=== PATIENT | female | born 1990 | race Caucasian/White ===

== ENCOUNTER 2020-12-05 | Outpatient (REF) | payer BC, SELFPAY ==
[2020-12-11 21:22] LABS: HPV mRNA E6/E7 rflx Not Detected (Not Detected)
== END 2020-12-05 00:01 | disposition home or self-care (01) ==
LOC: HO.LNP
PROVIDERS: Visit Provider Internal Medicine
DX: Z12.4 Encounter for screening for malignant neoplasm of cervix (principal); Z11.51 Encounter for screening for human papillomavirus (HPV)
CPT/HCPCS: 87624; 88142

== ENCOUNTER 2021-01-07 15:17 | Outpatient (REF) | payer BC, SELFPAY ==
--- NOTE | ~2021-01-07 | XR_ITS ---
EXAMINATION: XR SACRUM AND COCCYX CLINICAL INFORMATION: Contusion of lower back and pelvis COMPARISON: None TECHNIQUE: 3 views of sacrum and coccyx were obtained. FINDINGS: There is normal symmetry of bilateral SI joints. No visible fracture is a bony abnormality involving the sacrum or the coccygeal bones. The presacral and postsacral soft tissues are normal. XR/XR sacrum coccyx min 2V IMPRESSION: Unremarkable sacrum and/or coccyx
== END 2021-01-07 15:18 | disposition home or self-care (01) ==
LOC: HO.HMGCX 15:17
PROVIDERS: PCP Internal Medicine; Visit Provider Nurse Practitioner Family
DX: S30.0XXA Contusion of lower back and pelvis, initial encounter (principal); X58.XXXA Exposure to other specified factors, initial encounter; Y93.9 Activity, unspecified; Y92.9 Unspecified place or not applicable; Y99.9 Unspecified external cause status
CPT/HCPCS: 72220

== ENCOUNTER → 2021-02-07 14:06 | Outpatient (REF) | payer BC, SELFPAY ==
--- NOTE | 2021-02-07 14:40 | ECG_ITS ---
Hook-up date: 2021-02-07 14:19:00 Duration: 47:59:00 Test Indications: PALPITATIONS Medications: [id number] QRS complexes * Ventricular ectopics which represent % of total QRS comp. * Supraventricular ectopics which represent % of total QRS comp. * Paced QRS complexs which represent % of total QRS comp. VENTRICULAR ECTOPY * Isolated * Bigeminal Cycles * Couplets * Runs * Beats in Runs * Beats LONGEST at * BPM at :: -- * Beats FASTEST at * BPM at :: -- SUPRAVENTRICULAR ECTOPY * Isolated * Couplets * Runs * Beats in Runs * Beats LONGEST at * BPM at :: -- * Beats FASTEST at * BPM at :: -- HEART RATES 53 MIN at 05:58:22 2021-02-08 83 AVG 147 MAX at 18:36:26 2021-02-07 LONGEST RR 1.4240 secs at 03:19:58 2021-02-08 S-T LEVELS Channel 1 - 128 mm at 14:19:00 2021-02-07 - 128 mm at 14:19:00 2021-02-07 Channel 2 - 128 mm at 14:19:00 2021-02-07 - 128 mm at 14:19:00 2021-02-07 Channel 3 - 128 mm at 03:33:81 -- - 128 mm at 03:33:81 Basic rhythm Normal sinus rhythm No long pause or profound bradycardia No dangerous dysrhythm periods Referred By: Lenore Francis Overread By: ERICA RODRÍGUEZ MD
== END ==
LOC: HO.CARD 14:06
PROVIDERS: PCP Internal Medicine; Visit Provider Internal Medicine
DX: R00.2 Palpitations (principal)
CPT/HCPCS: 93225; 93226

== ENCOUNTER 2021-02-18 08:07 | Outpatient (REF) | payer BC, SELFPAY ==
[2021-02-18 11:24] LABS: MANUAL DIFF FLAG NO
[2021-02-18 11:27] LABS: Basophils Percent Auto 0.4 % (0-2); Eosinophils Absolute Auto 0.2 X10*3/uL (0.0-0.4); Eosinophils Percent Auto 2.9 % (0-4); Hematocrit 42.1 % (37-47); Hemoglobin 14.4 g/dl (12.0-16.0); Imm Gran Abs Auto 0.02 X10*3/uL (0.00-0.03); Imm Gran Pct Auto 0.3 % (0.0-0.4); Lymphocytes Absolute Auto 1.5 X10*3/uL (1.2-4.9); Lymphocytes Percent Auto 22.5 % (20-40); Mean Corpuscular HGB Conc 34.2 g/dl (31.0-35.0); Mean Corpuscular Hemoglobin 31.9 pg (27.0-33.0); Mean Corpuscular Volume 93.1 fL (80-98); Mean Platelet Volume 9.4 fL (9.4-12.3); Monocytes Absolute Auto 0.5 X10*3/uL (0.1-1.2); Monocytes Percent Auto 7.7 % (2-11); Neutrophils Absolute Auto 4.5 X10*3/uL (2.0-8.3); Neutrophils Percent Auto 66.2 % (45-73); Platelet Count 197 X10*3/uL (160-400); Red Blood Count 4.52 X10*6/uL (4.20-5.50); Red Cell Distribution Width 11.6 % (11.0-16.0); White Blood Count 6.8 X10*3/uL (4.8-10.8)
[2021-02-18 12:03] LABS: Aspartate Amino Transferase 22 U/L (5-31); Cholesterol 171 mg/dL; HDL Cholesterol 54 mg/dL; LDL Cholesterol Calculated 104 mg/dl; Triglycerides 67 mg/dL
[2021-02-18 12:04] LABS: TSH reflex Free T4 0.63 uIU/mL (0.32-4.0); Vitamin D 25-OH Total 18.8 ng/mL (>30)
[2021-02-19 07:54] LABS: HIV AB/AG Nonreactive (Nonreactive); HIV Num 1 0.04 S/CO (0.00-0.99); ~HepC Num1 0.08 S/CO (0.00-0.79); ~Hepatitis C Antibody Nonreactive (Nonreactive)
== END 2021-02-18 08:08 | disposition home or self-care (01) ==
LOC: HO.HMGCLDS 08:07
PROVIDERS: PCP Internal Medicine; Visit Provider Internal Medicine
DX: Z00.01 Encounter for general adult medical examination with abnormal findings (principal); R00.2 Palpitations; Z11.3 Encounter for screening for infections with a predominantly sexual mode of transmission
CPT/HCPCS: 36415; 80061; 82306; 84443; 84450; 85025; 86803; 87389

== ENCOUNTER 2022-01-06 08:55 | Outpatient (REF) | payer OTHER, SELFPAY ==
[2022-01-06 11:33] LABS: Appearance Urine CLEAR; Color Urine YELLOW; Glucose Urine UA NEG (NEG); Leukocyte Esterase Urine 1+ (NEG); Nitrite Urine NEG (NEG); Specific Gravity - Urine 1.025 (1.005-1.025); UACC Culture Trigger YES; Urine Blood 3+ (NEG); Urine Ketones NEG (NEG); Urine Protein NEG (NEG-TRACE)
[2022-01-06 11:35] LABS: MANUAL DIFF FLAG NO
[2022-01-06 11:47] LABS: Basophils Percent Auto 0.5 % (0-2); Eosinophils Absolute Auto 0.2 X10*3/uL (0.0-0.4); Hematocrit 43.5 % (37.0-47.0); Hemoglobin 14.1 g/dl (12.0-16.0); Imm Gran Abs Auto 0.02 X10*3/uL (0.00-0.03); Imm Gran Pct Auto 0.3 % (0.0-0.4); Lymphocytes Percent Auto 32.6 % (20-40); Mean Corpuscular HGB Conc 32.4 g/dl (31.0-35.0); Mean Corpuscular Hemoglobin 32.9 pg (27.0-33.0); Mean Corpuscular Volume 101.4 fL (80.0-98.0); Mean Platelet Volume 9.4 fL (9.4-12.3); Monocytes Absolute Auto 0.5 X10*3/uL (0.1-1.2); Monocytes Percent Auto 7.5 % (2-11); Neutrophils Absolute Auto 3.3 x10*3/uL (2.0-8.3); Neutrophils Percent Auto 55.1 % (45-73); Platelet Count 232 X10*3/uL (160-400); Red Blood Count 4.29 X10*6/uL (4.20-5.50); Red Cell Distribution Width 12.2 % (11.0-16.0)
[2022-01-06 11:56] LABS: Bacteria Urine TRACE /LPF; Squamous Epithelial Cell Urine 2+ /LPF
[2022-01-06 12:16] LABS: Alanine Aminotransferase 33 U/L (0-31); Anion Gap 11 (12-20); Aspartate Amino Transferase 27 U/L (5-31); Blood Urea Nitrogen 11 mg/dL (9-16); Calcium 9.3 mg/dL (8.4-10.2); Carbon Dioxide 28 mmol/L (22-29); Chloride 109 mmol/L (96-108); Cholesterol 215 mg/dL; Estimated Glomerular Filt Rate > 60; Glucose Fasting 87 mg/dL (60-99); HDL Cholesterol 42 mg/dL; LDL Cholesterol Calculated 141 mg/dl; Sodium 143 mmol/L (135-145); Triglycerides 164 mg/dL
[2022-01-06 12:17] LABS: Vitamin D 25-OH Total 35.9 ng/mL (>30)
== END 2022-01-06 08:56 | disposition home or self-care (01) ==
LOC: HO.HMGCLDS 08:55
PROVIDERS: Visit Provider Internal Medicine
DX: Z00.00 Encounter for general adult medical examination without abnormal findings (principal)
CPT/HCPCS: 36415; 80048; 80061; 81001; 82306; 84450; 84460; 85025; 87086

== ENCOUNTER 2022-04-06 12:02 | Outpatient (REF) | payer OTHER, SELFPAY ==
[2022-04-06 12:59] LABS: Influenza A PCR NEGATIVE (Negative); Influenza B PCR NEGATIVE (Negative); Resp Syncy Virus RNA Qual PCR NEGATIVE (Negative); SARS COV2 PCR INHOUSE NEGATIVE (Negative)
== END 2022-04-06 12:03 | disposition home or self-care (01) ==
LOC: HO.LNP 12:02
PROVIDERS: Visit Provider Emergency Medicine
DX: R68.89 Other general symptoms and signs (principal); Z20.822 Contact with and (suspected) exposure to COVID-19
CPT/HCPCS: 0241U

== ENCOUNTER 2023-04-14 08:56 | Outpatient (REF) | payer OTHER, SELFPAY | END 2023-04-14 08:57 | disposition home or self-care (01) | LOC: HO.HMGCLDS 08:56 | PROVIDERS: PCP Internal Medicine; Visit Provider Internal Medicine | DX: Z00.01 Encounter for general adult medical examination with abnormal findings (principal); E78.00 Pure hypercholesterolemia, unspecified; E66.3 Overweight; Z13.1 Encounter for screening for diabetes mellitus; Z13.220 Encounter for screening for lipoid disorders | CPT/HCPCS: 36415; 80061; 82947; 84450; 84460 ==

== ENCOUNTER 2023-06-29 13:50 | Outpatient (AMB) | payer OTHER, SELFPAY ==
--- NOTE | 2023-06-29 14:17 | MHC.PC.OV ---
Vital Signs 06/29/23 14:18 Height 5 ft 1 in Weight 143 lb BMI 27.0 BP 100/70 Blood Pressure Location Lt brachial Position Sitting Pulse 95 Pulse Source Pulse Oximeter Pulse Oximetry (%) 99 Oxygen Delivery Method Room Air Intake Visit Reasons: Rt foot sari. wart removal 07/06 Dr. Bar Intake Note: Pt is here today for a pre-op Rt foot plantar wart removal 07/06/23 Dr. Bar Allergies amoxicillin [AMOXICILLIN] Allergy (Unknown, Verified 06/29/23 14:28) UNKNOWN, unsure vancomycin Allergy (Mild, Uncoded 06/29/23 14:28) rash itchiness Medication List - Last Reconciled 06/29/23 by Lenore Francis MD multivitamin 1 tab PO DAILY Tobacco use date assessed: 06/29/23 Dental Screening Dental Screen Date: 06/29/23 Did you have a dental visit in the last 12 months?: Yes Did you have a dental problem in the last 6 months where you did not have access to dental care?: No Was dental information given to patient?: Patient has dentist HPI Rt foot sari. wart removal 07/06 Dr. Bar HPI Details 33-year-old lady here today for preoperative exam for laser surgery for removal plantar warts on right foot, scheduled for 07/06/2023, requested by Dr. Bar. Patient has hypercholesterolemia, controlled with diet and exercise,, has no complaints at present time. [facility] Medical History Hypercholesterolemia Plantar wart of right foot Wart Generalized anxiety disorder with panic attacks Seasonal allergies Chlamydia Ectopic Bruxism Surgical History History of surgery History of surgery History of eye surgery Family History Father ETOH abuse Diabetes mellitus Mother No problems noted. Sister No problems noted. Sister No problems noted. Maternal Grandfather No problems noted. Maternal Grandmother No problems noted. Paternal Grandfather No problems noted. Paternal Grandmother No problems noted. Other Mental health disorder Substance use disorder Social History Housing: Apartment Alcohol intake: current Alcohol intake frequency: holidays/special occasions only Patient Tobacco Use Status: Never used Tobacco e-Cigarette/Vaping Use: Never Used Current occupational status: employed Cognitive needs: No Hearing needs: No Vision needs: Yes Questionnaire PHQ-9 Over the last 2 weeks, how often have you been bothered by any of the following problems? Depression Screening Interpretation: Negative Source: Developed by Drs. Mehrdad Coon, Karlos Cristina and colleagues, with an educational luiza from [employer]. Thrive Questionnaire Date Thrive assessed: 04/14/23 CARLEEN-7 AMB Questionnaire CARLEEN-7 Date CARLEEN - 7 assessed: 04/14/23 Source: Developed by Drs. Mehrdad Coon, Karlos Cristina and colleagues, with an educational luiza from [employer]. Review of Systems Const Denies body aches, Denies fatigue, Denies fever(s), Denies headache(s) and Denies weakness Eyes Details: Positive myopia, [facility] clinic in [place] Denies change in vision ENT Denies dizziness, Denies headache(s), Denies nasal congestion, Denies nasal discharge and Denies sore throat Card Denies chest pain, Denies lightheadedness, Denies palpitations and Denies dyspnea Resp Denies chest congestion, Denies cough, Denies dyspnea and Denies wheezing GI Denies abdominal pain, Denies change in bowel habits and Denies heartburn Denies urinary frequency, Denies dysuria and Denies urinary urgency Musc Reports no additional complaints Skin/Breast Denies breast skin changes, Denies breast pain, Denies breast mass and Reports lesions (Plantar wart right foot) Neuro Denies dizziness, Denies headache(s) and Denies weakness Psych Denies anxiety, Denies depression, Denies irritability, Denies mood swings and Denies panic attacks Endo Denies fatigue, Denies polydipsia, Denies polyuria and Denies palpitations Bao/Lymph Denies easy bruising Aller/Immun Denies seasonal rhinorrhea and Denies wheezing Physical exam (Primary Care) Vital Signs: Last Vital Signs Pulse 95 06/29/23 14:18 BP 100/70 06/29/23 14:18 Pulse Ox 99 06/29/23 14:18 Oxygen Delivery Method Room Air 06/29/23 14:18 BMI result Body Mass Index 27.0 Tobacco/Smoking Status: Tobacco use Status Tobacco use date assessed 06/29/23 06/29/23 14:21 Patient Tobacco Use Status Never used Tobacco 06/29/23 14:21 e-Cigarette/Vaping Use Never Used 06/29/23 14:21 Depression Screening Interpretation: Negative Thrive Assessment: Date of Thrive Assessment Date Thrive assessed 04/14/23 06/29/23 14:21 Const General: no acute distress, alert and awake Orientation/consciousness: patient oriented x3 HENMT Ears: external ears normal, TM's normal bilaterally and EAC's normal Eyes General: appearance normal, both eyes and all related structures Neck Neck: Yes full ROM, Yes no lymphadenopathy, Yes no meningeal signs and Yes supple Resp Effort & Inspection: normal respiratory effort and able to speak in complete sentences Auscultation: clear to auscultation bilaterally Cardio Other: S1-S2 present regular rate and rhythm GI Other: + striae, Normal bowel sounds, soft, nontender, no mass palpated General: Yes no CVA tenderness Back/Spine/Pelvis Back: no CVA tenderness and No back tenderness Skin Other: Right plantar wart, nontender to palpation Neuro General: patient oriented x3, gait normal, tone normal, moves all extremities, Normal light touch and pain sensation, no meningeal signs, no focal motor deficits and CN's II-XI intact bilaterally Extrem General: Yes full ROM, Yes no joint enlargement, Yes no clubbing, cyanosis or edema, Yes no pedal edema, Yes no calf tenderness and Yes normal gait Assessment and Plan Assessment & Plan (1) Preoperative examination: Code(s): Z01.818 - Encounter for other preprocedural examination Plan: Pt is a 33 year old lady here for preoperative clearance for under laser surgery for plantar wart on right foot scheduled for 07/06/2023, requested by Dr. Bar She has history of hypercholesteremia, currently controlled and with diet and exercise . Physical exam was unremarkable . Patient with low cardiac risk index for proposed surgery (2) Plantar wart of right foot: Code(s): B07.0 - Plantar wart Plan: Scheduled for laser excision on 07/06/[address] Bar Coding Level of Care Code Est Pt Level 3 (07633) Diagnoses Preoperative examination Z01.818 Plantar wart of right foot B07.0
[2023-06-29 14:18] VITALS: BP 100/70; PULSE 95; O2SAT 99; BMI 27.0
== END 2023-06-29 14:55 | disposition home or self-care (01) ==
PROVIDERS: PCP Internal Medicine; Visit Provider Internal Medicine
DX: Z01.818 Encounter for other preprocedural examination (principal); B07.0 Plantar wart
CPT/HCPCS: 99213

== ENCOUNTER 2024-01-27 11:17 | Outpatient (AMB) | payer OTHER, SELFPAY ==
[2024-01-27 11:21] VITALS: BP 100/72; PULSE 69; O2SAT 100; BMI 27.2
--- NOTE | 2024-01-27 11:21 | MHC.PC.OV ---
Vital Signs 01/27/24 11:21 Height 5 ft 1 in Weight 144 lb BMI 27.2 BP 100/72 Blood Pressure Location Lt brachial Position Sitting Pulse 69 Pulse Source Pulse Oximeter Pulse Oximetry (%) 100 Oxygen Delivery Method Room Air Intake Visit Reasons: chest pain Intake Note: Pt is here today c/o sharp pain below Lt breast, aches more when taking a deep breath started yesterday: LMP 01/05/24 Allergies amoxicillin [AMOXICILLIN] Allergy (Unknown, Verified 01/27/24 11:52) UNKNOWN, unsure vancomycin Allergy (Mild, Uncoded 01/27/24 11:52) rash itchiness Medication List - Last Reconciled 01/27/24 by Lenore Francis MD multivitamin 1 tab PO DAILY Saccharomyces boulardii (Daily Probiotic (S. boulardii)) 250 mg PO BID Tobacco use date assessed: 01/27/24 Dental Screening Dental Screen Date: 01/27/24 Did you have a dental visit in the last 12 months?: Yes Did you have a dental problem in the last 6 months where you did not have access to dental care?: No Was dental information given to patient?: Patient has dentist HPI chest pain HPI Details 33-year-old lady here today complaining of intermittent episodes of sharp pain in left anterior chest, just below the nipple, comes and goes, worse with taking a deep breath or lying flat. Denies any accompanying palpitations, no shortness of breath, no lightheadedness, no nausea, vomiting or heartburn symptoms.. Did not take any medication for this complaint. No history of trauma or strenuous exertion. Patient states however that she does carry her daughter who weighs 20 lb usually with on her left side. [facility] Medical History Hypertriglyceridemia Plantar wart of right foot Generalized anxiety disorder with panic attacks Seasonal allergies Chlamydia Ectopic Bruxism Surgical History History of surgery History of surgery History of eye surgery Family History Father ETOH abuse Diabetes mellitus Mother No problems noted. Sister No problems noted. Sister No problems noted. Maternal Grandfather No problems noted. Maternal Grandmother No problems noted. Paternal Grandfather No problems noted. Paternal Grandmother No problems noted. Other Mental health disorder Substance use disorder Social History Housing: Apartment Alcohol intake: current Alcohol intake frequency: holidays/special occasions only Patient Tobacco Use Status: Never used Tobacco e-Cigarette/Vaping Use: Never Used Current occupational status: employed Cognitive needs: No Hearing needs: No Vision needs: Yes Female Reproductive History Menstrual Date of last menstrual period: 01/05/24 control method: none Questionnaire PHQ-9 Over the last 2 weeks, how often have you been bothered by any of the following problems? 1. Little interest or pleasure in doing things: not at all 2. Feeling down, depressed, or hopeless: not at all 3. Trouble falling or staying asleep, or sleeping too much: not at all 4. Feeling tired or having little energy: not at all 5. Poor appetite or overeating: not at all 6. Feeling bad about yourself - or that you are a failure or have let yourself or your family down: not at all 7. Trouble concentrating on things, such as reading the newspaper or watching television: not at all 8. Moving or speaking so slowly that other people could have noticed. Or the opposite - being so fidgety or restless that you have been moving around a lot more than usual: not at all 9. Thoughts that you would be better off or of hurting yourself in some way: not at all Total score: 0 Depression Screening Interpretation: Negative Depression Screening Done: Yes 59083 - PHQ-9 Billing: Yes Source: Developed by Drs. Mehrdad Coon, Katerina Jansen, Karlos Bolden and colleagues, with an educational luiza from [employer]. Thrive Questionnaire Date Thrive assessed: 01/27/24 I am a: Patient What is your living situation today?: I have a steady place to live Within the past 12 months, did the food you bought not last and you didn't have the money to get more?: Never true Within the past 12 months, did you worry whether your food would run out before you got money to buy more?: Never true Do you have trouble paying for medicines?: No Do you have trouble getting transportation to medical appointments?: No Do you have trouble paying your heating and electricity bill?: No Do you have trouble taking care of your child, family member or friend?: No Do you have trouble with day-to-day activities such as bathing, preparing meals, shopping, managing finances, etc.?: No Are you currently unemployed and looking for a job?: No Are you interested in more education?: No THRIVE Score: 0 AUDIT C Alcohol Use Questionnaire (AUDIT-C) 1. How often do you have a drink containing alcohol?: Monthly or less 2. How many drinks containing alcohol do you have on a typical day when you are drinking?: 1 or 2 3. How often do you have six or more drinks on one occasion?: Never Total Score: 1 CARLEEN-7 AMB Questionnaire CARLEEN-7 Date CARLEEN - 7 assessed: 01/27/24 Feeling nervous, anxious, or on edge: 0 = Not at all Not being able to stop or control worryin = Not at all Worrying too much about different things: 0 = Not at all Trouble relaxin = Not at all Being so restless that it is hard to sit still: 0 = Not at all Becoming easily annoyed or irritable: 0 = Not at all Feeling afraid as if something awful might happen: 0 = Not at all Total CARLEEN-7 score (0-4 normal; 5-9 mild; 10-14 moderate; 15-21 severe): 0 Source: Developed by Drs. Mehrdad Coon, Katerina Jansen, Karlos Bolden and colleagues, with an educational luiza from [employer]. CARLEEN-7 Assessment Billing CARLEEN-7 Assessment Tool: CARLEEN-7 Assessment 57351 Review of Systems Const Denies fatigue, Denies fever(s), Denies headache(s) and Denies weakness ENT Denies dizziness, Denies headache(s), Denies nasal congestion and Denies nasal discharge Card Denies lightheadedness, Denies palpitations and Denies dyspnea Resp Denies chest congestion, Denies cough, Denies dyspnea and Denies wheezing GI Denies abdominal pain, Denies change in bowel habits and Denies heartburn Denies urinary frequency, Denies dysuria and Denies urinary urgency Musc Reports no additional complaints Skin/Breast Denies breast skin changes, Denies breast pain and Denies breast mass Neuro Denies dizziness, Denies headache(s) and Denies weakness Psych Denies anxiety, Denies depression, Denies irritability and Denies mood swings Endo Denies fatigue, Denies polydipsia, Denies polyuria and Denies palpitations Aller/Immun Denies seasonal rhinorrhea and Denies wheezing Physical exam (Primary Care) Vital Signs: Last Vital Signs Pulse 69 01/27/24 11:21 BP 100/72 01/27/24 11:21 Pulse Ox 100 01/27/24 11:21 Oxygen Delivery Method Room Air 01/27/24 11:21 BMI result Body Mass Index 27.2 Tobacco/Smoking Status: Tobacco use Status Tobacco use date assessed 01/27/24 01/27/24 11:27 Patient Tobacco Use Status Never used Tobacco 01/27/24 11:22 e-Cigarette/Vaping Use Never Used 01/27/24 11:22 PHQ-9: PHQ-9 Score PHQ-9: Total score 0 01/27/24 12:20 Depression Screening Interpretation: Negative Thrive Assessment: Date of Thrive Assessment Date Thrive assessed 01/27/24 01/27/24 12:16 Const General: no acute distress, alert and awake Orientation/consciousness: patient oriented x3 Neck Neck: Yes full ROM, Yes no lymphadenopathy, Yes no meningeal signs and Yes supple Resp Effort & Inspection: normal respiratory effort and able to speak in complete sentences Auscultation: clear to auscultation bilaterally Cardio Other: S1-S2 present regular rate and rhythm GI Other: + striae, Normal bowel sounds, soft, nontender, no mass palpated Back/Spine/Pelvis Back: No back tenderness Skin General skin exam: no rashes or lesions noted Neuro General: patient oriented x3, gait normal, tone normal, moves all extremities, Normal light touch and pain sensation, no meningeal signs, no focal motor deficits and CN's II-XI intact bilaterally Results AMB Test Urine AMB Test Urine Negative Last Edit by Kanika Arechiga CMA on 01/27/24 12:19 Results Reviewed Results Reviewed: Laboratory Last Values [facility]st Clinic Negative 01/27/24 12:18 Assessment and Plan Assessment & Plan (1) Left-sided chest pain: Code(s): R07.9 - Chest pain, unspecified Plan: Reproducible chest pain on left anterior chest around the 5th to 6th ribs along left anterior axillary line, no mass or skin lesion seen over area. Likely costochondritis., x-ray of left rib ordered, advised to try massaging diclofenac gel or Aleve gel to affected area to 2 3 times a day as needed, or may take take a Tylenol 500 mg tablet every 8 hours as needed for pain. May also try applying Salonpas patch to affected area and leave it on for at least 8 hours at a time, do not use when using diclofenac or Aleve gel. EKG done showed normal rhythm with no acute ST-T changes. Orders: Orders AMB HCG Urine Test Today Z32.02 - Encounter for test, result negative AMB EKG-In Office Today R07.9 - Chest pain, unspecified Coding Level of Care Code Est Pt Level 4 (29001) Diagnoses Left-sided chest pain R07.9 Additional Codes CARLEEN-7 Assessment Billing - CARLEEN-7 Assessment Tool: CARLEEN-7 Assessment 45378 ([id number])
== END 2024-01-27 12:48 | disposition home or self-care (01) ==
PROVIDERS: PCP Internal Medicine; Visit Provider Internal Medicine
DX: R07.9 Chest pain, unspecified (principal); Z32.02 Encounter for pregnancy test, result negative
CPT/HCPCS: 81025; 99214

== ENCOUNTER 2024-01-27 12:26 | Outpatient (REF) | payer OTHER, SELFPAY ==
--- NOTE | ~2024-01-27 | XR_ITS ---
EXAMINATION: XR RIBS, LEFT CLINICAL INFORMATION: Chest pain COMPARISON: None available. TECHNIQUE: 3 views of the left ribs were obtained. FINDINGS: Lungs are clear. No consolidation, pneumothorax, or pleural effusion. The cardiomediastinal silhouette and pulmonary vasculature are normal. Osseous structures are unremarkable. Ribs are intact. No fractures are identified. XR/XR ribs LT min 3V w CXR1V IMPRESSION: Unremarkable examination.
== END 2024-01-27 12:27 | disposition home or self-care (01) ==
LOC: HO.HMGCX 12:26
PROVIDERS: PCP Internal Medicine; Visit Provider Internal Medicine
DX: R07.9 Chest pain, unspecified (principal)
CPT/HCPCS: 71101

== ENCOUNTER 2024-04-19 08:03 | Outpatient (AMB) | payer OTHER, SELFPAY ==
[2024-04-19 08:07] VITALS: BP 112/70; PULSE 74; O2SAT 97; BMI 27.8
--- NOTE | 2024-04-19 08:07 | MHC.PC.OV ---
Vital Signs 04/19/24 08:07 Height 5 ft Weight 142 lb 8 oz BMI 27.8 BP 112/70 Blood Pressure Location Lt brachial Position Sitting Pulse 74 Pulse Source Pulse Oximeter Pulse Oximetry (%) 97 Oxygen Delivery Method Room Air Intake Visit Reasons: PE Intake Note: Pt is here today for her Annual Physical Last pap 12/09/20 Last flu shot 11/2022 Allergies amoxicillin [AMOXICILLIN] Allergy (Unknown, Verified 04/19/24 08:14) UNKNOWN, unsure vancomycin Allergy (Mild, Uncoded 04/19/24 08:14) rash itchiness Medication List - Last Reconciled 04/19/24 by Lenore Francis MD Saccharomyces boulardii (Daily Probiotic (S. boulardii)) 250 mg PO BID Tobacco use date assessed: 04/19/24 Dental Screening Dental Screen Date: 04/19/24 Did you have a dental visit in the last 12 months?: Yes Did you have a dental problem in the last 6 months where you did not have access to dental care?: No Was dental information given to patient?: Patient has dentist HPI PE HPI Details Here today for her physical exam. She has been feeling well with no units at present time. Her last Pap was done in 2020 with negative findings. [facility] Medical History Hypertriglyceridemia Plantar wart of right foot Generalized anxiety disorder with panic attacks Seasonal allergies Chlamydia Ectopic Bruxism Surgical History History of surgery History of surgery History of eye surgery Family History Father ETOH abuse Diabetes mellitus Mother No problems noted. Sister No problems noted. Sister No problems noted. Maternal Grandfather No problems noted. Maternal Grandmother No problems noted. Paternal Grandfather No problems noted. Paternal Grandmother No problems noted. Other Mental health disorder Substance use disorder Social History Housing: Apartment Alcohol intake: current Alcohol intake frequency: holidays/special occasions only Patient Tobacco Use Status: Never used Tobacco e-Cigarette/Vaping Use: Never Used service: No Current occupational status: employed Cognitive needs: No Hearing needs: No Vision needs: Yes Questionnaire PHQ-9 Over the last 2 weeks, how often have you been bothered by any of the following problems? 1. Little interest or pleasure in doing things: not at all 2. Feeling down, depressed, or hopeless: not at all 3. Trouble falling or staying asleep, or sleeping too much: not at all 4. Feeling tired or having little energy: not at all 5. Poor appetite or overeating: not at all 6. Feeling bad about yourself - or that you are a failure or have let yourself or your family down: not at all 7. Trouble concentrating on things, such as reading the newspaper or watching television: not at all 8. Moving or speaking so slowly that other people could have noticed. Or the opposite - being so fidgety or restless that you have been moving around a lot more than usual: not at all 9. Thoughts that you would be better off or of hurting yourself in some way: not at all Total score: 0 Depression Screening Interpretation: Negative Depression Screening Done: Yes 03239 - PHQ-9 Billing: Yes Source: Developed by Drs. Mehrdad Coon, Katerina Jansen, Karlos Bolden and colleagues, with an educational luiza from [employer]. Thrive Questionnaire Date Thrive assessed: 04/19/24 I am a: Patient What is your living situation today?: I have a steady place to live Within the past 12 months, did the food you bought not last and you didn't have the money to get more?: Never true Within the past 12 months, did you worry whether your food would run out before you got money to buy more?: Never true Do you have trouble paying for medicines?: No Do you have trouble getting transportation to medical appointments?: No Do you have trouble paying your heating and electricity bill?: No Do you have trouble taking care of your child, family member or friend?: No Do you have trouble with day-to-day activities such as bathing, preparing meals, shopping, managing finances, etc.?: No Are you currently unemployed and looking for a job?: No Are you interested in more education?: No Please select the resources that you would like help with: None Currently or been in a relationship where the following occur: No concerns reported THRIVE Score: 0 AUDIT C Alcohol Use Questionnaire (AUDIT-C) 1. How often do you have a drink containing alcohol?: Monthly or less 2. How many drinks containing alcohol do you have on a typical day when you are drinking?: 1 or 2 3. How often do you have six or more drinks on one occasion?: Never Total Score: 1 Score Reviewed/Action Taken: Yes CARLEEN-7 AMB Questionnaire CARLEEN-7 Date CARLEEN - 7 assessed: 04/19/24 Feeling nervous, anxious, or on edge: 1 = Several days Not being able to stop or control worryin = Not at all Worrying too much about different things: 1 = Several days Trouble relaxin = Not at all Being so restless that it is hard to sit still: 0 = Not at all Becoming easily annoyed or irritable: 1 = Several days Feeling afraid as if something awful might happen: 0 = Not at all Total CARLEEN-7 score (0-4 normal; 5-9 mild; 10-14 moderate; 15-21 severe): 3 Source: Developed by Drs. Mehrdad Coon, Katerina Jansen, Karlos Bolden and colleagues, with an educational luiza from [employer]. CARLEEN-7 Assessment Billing CARLEEN-7 Assessment Tool: CARLEEN-7 Assessment 53865 Review of Systems Const Denies fatigue, Denies fever(s), Denies headache(s) and Denies weakness Eyes Denies change in vision ENT Denies dizziness, Denies headache(s), Denies nasal congestion and Denies nasal discharge Card Denies lightheadedness, Denies palpitations and Denies dyspnea Resp Denies chest congestion, Denies cough, Denies dyspnea and Denies wheezing GI Denies abdominal pain, Denies change in bowel habits and Denies heartburn Denies abnormal menses, Denies urinary frequency, Denies dysuria, Denies urinary urgency and Denies vaginal discharge Musc Reports no additional complaints Skin/Breast Denies breast skin changes, Denies breast pain and Denies breast mass Neuro Denies dizziness, Denies headache(s) and Denies weakness Psych Denies anxiety, Denies depression, Denies irritability and Denies mood swings Endo Denies fatigue, Denies polydipsia, Denies polyuria and Denies palpitations Bao/Lymph Reports no additional complaints Aller/Immun Denies seasonal rhinorrhea and Denies wheezing Physical exam (Primary Care) Vital Signs: Last Vital Signs Pulse 74 04/19/24 08:07 BP 112/70 04/19/24 08:07 Pulse Ox 97 04/19/24 08:07 Oxygen Delivery Method Room Air 04/19/24 08:07 BMI result Body Mass Index 27.8 Tobacco/Smoking Status: Tobacco use Status Tobacco use date assessed 04/19/24 04/19/24 08:10 Patient Tobacco Use Status Never used Tobacco 04/19/24 08:08 e-Cigarette/Vaping Use Never Used 04/19/24 08:08 PHQ-9: PHQ-9 Score PHQ-9: Total score 0 04/19/24 08:10 Depression Screening Interpretation: Negative Thrive Assessment: Date of Thrive Assessment Date Thrive assessed 04/19/24 04/19/24 08:10 Currently or been in a relationship where the following occur: No concerns reported Const General: no acute distress, alert and awake Orientation/consciousness: patient oriented x3 HENMT Head: Yes normocephalic Ears: external ears normal, TM's normal bilaterally and EAC's normal General nose exam: Normal external nose present Face and sinus: Yes face symmetric Mouth: Normal oral and palatal mucosa present, lip normal, tongue normal, oropharynx normal and moist mucous membranes Eyes General: appearance normal, both eyes and all related structures Neck Neck: Yes full ROM, Yes no lymphadenopathy, Yes no meningeal signs and Yes supple Chest Chest palpation & inspection: normal inspection of the chest Breast/axilla palpation: normal palpation of the breasts Resp Effort & Inspection: normal respiratory effort and able to speak in complete sentences Auscultation: clear to auscultation bilaterally Cardio Other: S1-S2 present regular rate and rhythm GI Other: + striae, Normal bowel sounds, soft, nontender, no mass palpated Other: Last Pap smear was in 2020 with normal findings Back/Spine/Pelvis Back: No back tenderness Skin General skin exam: no rashes or lesions noted Neuro General: patient oriented x3, gait normal, tone normal, moves all extremities, Normal light touch and pain sensation, no meningeal signs, no focal motor deficits and CN's II-XI intact bilaterally Extrem General: Yes normal to inspection, Yes full ROM, Yes no joint enlargement and Yes no pedal edema Psych Appearance: grossly normal and well kempt Mental Status: mental status grossly normal Speech and movement: Normal speech and movement present Affect: normal affect Attitude: cooperative Thought process: Normal thought process present Thought content: Normal thought content present Assessment and Plan Assessment & Plan (1) Annual visit for general adult medical examination with abnormal findings: Code(s): Z00.01 - Encounter for general adult medical examination with abnormal findings Plan: Will check appropriate labs. Continue with regular dental visit every 6 months and regular eye exams, at least every 2 years. Take adequate calcium in diet and vitamin-D 3 at 2000 IU per cap once a day, in addition to weight-bearing exercises to help maintain good muscle tone and weight control. Instructed to do self-breast exam, and recommended to get yearly mammogram, starting at age 40. Up-to-date with her Tdap, gets yearly flu shots at work, has had 2 COVID but does not want to get booster (2) Hypertriglyceridemia: Code(s): E78.1 - Pure hyperglyceridemia Plan: Reinforced importance of following a healthy diet, avoidance of lot of processed foods, junk food, do regular exercise at least 30 minutes daily Orders: Orders Vitamin B12 and Folate Today Z00.01 - Encounter for general adult medical examination with abnormal findings Alanine Aminotransferase Today Z00.01 - Encounter for general adult medical examination with abnormal findings Vitamin D 25-OH Total Today Z00.01 - Encounter for general adult medical examination with abnormal findings Aspartate Amino Transferase Today Z00.01 - Encounter for general adult medical examination with abnormal findings Lipid Panel Today Z00.01 - Encounter for general adult medical examination with abnormal findings Glucose Fasting Today Z00.01 - Encounter for general adult medical examination with abnormal findings, Z13.1 - Encounter for screening for diabetes mellitus Coding Level of Care Code Est Pt Prev Care 18-39y([id number]) Diagnoses Annual visit for general adult medical examination with abnormal findings Z00. Hypertriglyceridemia E78.1 Additional Codes CARLEEN-7 Assessment Billing - CARLEEN-7 Assessment Tool: CARLEEN-7 Assessment 47113 ([id number])
== END 2024-04-19 10:15 | disposition home or self-care (01) ==
PROVIDERS: PCP Internal Medicine; Visit Provider Internal Medicine
DX: Z00.00 Encounter for general adult medical examination without abnormal findings (principal); E78.1 Pure hyperglyceridemia
CPT/HCPCS: 99395

== ENCOUNTER 2024-04-19 08:27 | Outpatient (REF) | payer OTHER, SELFPAY ==
[2024-04-19 10:45] LABS: Alanine Aminotransferase 13 U/L (0-31); Aspartate Amino Transferase 15 U/L (5-31); Cholesterol 173 mg/dL (<200); Glucose Fasting 94 mg/dL (60-99); HDL Cholesterol 44 mg/dL (>40); LDL Cholesterol Calculated 105 mg/dL (<100); Triglycerides 123 mg/dL (<150)
[2024-04-19 10:46] LABS: Vitamin D 25-OH Total 43.6 ng/mL (>30)
[2024-04-19 11:03] LABS: Vitamin B12 381 pg/mL (200-900)
== END 2024-04-19 08:28 | disposition home or self-care (01) ==
LOC: HO.HMGCLDS 08:27
PROVIDERS: PCP Internal Medicine; Visit Provider Internal Medicine
DX: Z00.01 Encounter for general adult medical examination with abnormal findings (principal); Z13.1 Encounter for screening for diabetes mellitus
CPT/HCPCS: 36415; 80061; 82306; 82607; 82746; 82947; 84450; 84460

== ENCOUNTER 2025-01-27 09:10 | Outpatient (AMB) | payer OTHER, SELFPAY ==
[2025-01-27 09:11] VITALS: BP 110/86; PULSE 75; RESP 16; TEMP 36.7; O2SAT 98; BMI 26.2
--- NOTE | 2025-01-27 09:11 | MHC.OFFWIV ---
Intake Vital Signs 01/27/25 09:11 Height 5 ft Weight 134 lb BMI 26.2 BP 110/86 Blood Pressure Location Rt brachial Position Sitting Respiration 16 Pulse 75 Pulse Source Pulse Oximeter Temp 98.0 F Temp Source Oral Pulse Oximetry (%) 98 Intake Visit Reasons: EP-Pain Rt Breast Intake Note: Pt is here today c/o Rt under breast pain: Pt states x2 mo. ago she slept wrong way and Rt upper back pain still aches Patient Tobacco Use Status: Never used Tobacco Allergies amoxicillin (AMOXICILLIN) Allergy (Unknown, Verified 01/30/25 11:09) UNKNOWN, unsure vancomycin Allergy (Mild, Uncoded 01/30/25 11:09) rash itchiness HPI EP-Pain Rt Breast HPI Details Patient is a 34 year-old female who comes to the walk-in clinic complaining of tenderness to the right breast upon palpation, that she discovered yesterday. She denies symptoms at rest or when the breast is not being pressured. She reports that her menses also just started, but she has not had a history of having breast tenderness with her menses in the past. She denies , nursing, trauma to the area, fever or chills, nausea vomiting or diarrhea, discharge from the nipple, dizziness or weakness, myalgias or malaise, weight changes, sweats, or other significant associated symptoms. Patient also reports that she woke up from sleeping in a awkward position about 2 months ago, and has had right upper back pain intermittently since then. No report of weakness in the extremities, numbness or tingling. Able to activities of daily lifting without assistance. No acute or repetitive injury that she can identify. [facility] Medical History Hypertriglyceridemia Plantar wart of right foot Generalized anxiety disorder with panic attacks Seasonal allergies Chlamydia Ectopic Bruxism Surgical History History of surgery History of surgery History of eye surgery Family History Father ETOH abuse Diabetes mellitus Mother No problems noted. Sister No problems noted. Sister No problems noted. Maternal Grandfather No problems noted. Maternal Grandmother No problems noted. Paternal Grandfather No problems noted. Paternal Grandmother No problems noted. Other Mental health disorder Substance use disorder Social History Housing: Apartment Alcohol intake: current Alcohol intake frequency: holidays/special occasions only Patient Tobacco Use Status: Never used Tobacco e-Cigarette/Vaping Use: Never Used service: No Current occupational status: employed Cognitive needs: No Hearing needs: No Vision needs: Yes Review of Systems Const All systems reviewed & are unremarkable except as noted in HPI and below Physical Exam Vital Signs: Last Vital Signs Temp 98.0 F 01/27/25 09:11 Pulse 75 01/27/25 09:11 Resp 16 01/27/25 09:11 BP 110/86 01/27/25 09:11 Pulse Ox 98 01/27/25 09:11 BMI result Body Mass Index 26.2 Assessment & Plan Assessment & Plan (1) Breast pain, right: Code(s): N64.4 - Mastodynia Plan: Patient comes in after having found that she has tenderness to the right breast with palpation, that was discovered on doing as an alpha evaluation. At rest she has no pain. She denies history of breast masses or concerns. She denies or . She recently started her menses, however she reports that she has no past history of having breast pain associated with her cycles. Likely she is having breast tenderness related to her menses, or possibly cystic changes. Her breasts are fibrous, and therefore it is difficult to appreciate a discrete mass, however I could not discern a scrape mass in the area where she is tender, right around and under the nipple. She sees Dr. Francis for her routine care, and I advised she follow up with Dr. Francis to discuss if she should be considered for ultrasound to the area, or mammogram. In the meantime we discussed that she can heat the breast with gentle heat if needed, or take oral anti-inflammatories. (2) Spasm of thoracic back muscle: Code(s): M62.830 - Muscle spasm of back Plan: Patient strained the right thoracic paraspinal muscle 2 months ago, and has had problems with it resolving on its own. She has not trialed medication, stretching or heating or other physical rehab. We discussed starting a muscle relaxer, and doing gentle stretching regularly. She might benefit from physical therapy for this, and can talk about this also with her primary care that her follow up visit. Medications: New cyclobenzaprine can take a second dose, to 10mg three times a day 5 mg PO TID 20 tabs 0RF muscle spasm ibuprofen 800 mg PO Q8H PRN 30 tabs 0RF pain Coding Level of Care Code Est Pt Level 4 (72773) Diagnoses Breast pain, right N64.4 Spasm of thoracic back muscle M62.830
== END 2025-01-27 10:11 | disposition home or self-care (01) ==
LOC: HO.HMCWIC 09:10
PROVIDERS: PCP Internal Medicine; Visit Provider Physician Assistant Medical
DX: N64.4 Mastodynia (principal); M62.830 Muscle spasm of back

== ENCOUNTER → 2025-01-27 09:10 | Outpatient (BNVA) | payer OTHER, SELFPAY | PROVIDERS: PCP Internal Medicine; Visit Provider Physician Assistant Medical | DX: Z13.89 Encounter for screening for other disorder (principal) ==

== ENCOUNTER 2025-01-30 09:55 | Outpatient (AMB) | payer OTHER, SELFPAY ==
[2025-01-30 10:42] VITALS: BP 100/72; PULSE 69; RESP 16; TEMP 36.8; O2SAT 100; BMI 26.8
--- NOTE | 2025-01-30 10:42 | MHC.PC.OV ---
Vital Signs 01/30/25 10:42 Height 5 ft Weight 137 lb BMI 26.8 BP 100/72 Blood Pressure Location Lt brachial Position Sitting Respiration 16 Pulse 69 Pulse Source Pulse Oximeter Temp 98.2 F Temp Source Oral Pulse Oximetry (%) 100 Oxygen Delivery Method Room Air Intake Visit Reasons: f/u walkin breast pain Intake Note: Pt is here today f/u c/o Rt breast pain Is last menstrual period known: Yes Last menstrual period: 01/27/25 Allergies amoxicillin [AMOXICILLIN] Allergy (Unknown, Verified 01/30/25 11:09) UNKNOWN, unsure vancomycin Allergy (Mild, Uncoded 01/30/25 11:09) rash itchiness Medication List - Last Reconciled 01/30/25 by Lenore Francis MD cyclobenzaprine 5 mg PO TID ibuprofen 800 mg PO Q8H PRN Tobacco use date assessed: 01/30/25 Dental Screening Dental Screen Date: 01/30/25 Did you have a dental visit in the last 12 months?: Yes Did you have a dental problem in the last 6 months where you did not have access to dental care?: No Was dental information given to patient?: Patient has dentist HPI f/u walkin breast pain HPI Details - The patient is a 34-year-old female presenting with right breast pain. - The breast pain began on Wednesday, occurring in conjunction with her menstrual cycle which started on Wednesday. - The pain is localized to the right breast and worsens with pressure but is not present without it. - No recent trauma or known lumps have been identified by the patient. - There is a family history suggestive of possible breast conditions, though no confirmed breast cancer history is verified in direct relatives. [facility] Medical History Hypertriglyceridemia Plantar wart of right foot Generalized anxiety disorder with panic attacks Seasonal allergies Chlamydia Ectopic Bruxism Surgical History History of surgery History of surgery History of eye surgery Family History Father ETOH abuse Diabetes mellitus Mother No problems noted. Sister No problems noted. Sister No problems noted. Maternal Grandfather No problems noted. Maternal Grandmother No problems noted. Paternal Grandfather No problems noted. Paternal Grandmother No problems noted. Other Mental health disorder Substance use disorder Social History Housing: Apartment Alcohol intake: current Alcohol intake frequency: holidays/special occasions only Patient Tobacco Use Status: Never used Tobacco e-Cigarette/Vaping Use: Never Used service: No Current occupational status: employed Cognitive needs: No Hearing needs: No Vision needs: Yes Female Reproductive History Menstrual Date of last menstrual period: 01/27/25 Questionnaire PHQ-9 Over the last 2 weeks, how often have you been bothered by any of the following problems? 1. Little interest or pleasure in doing things: not at all 2. Feeling down, depressed, or hopeless: not at all 3. Trouble falling or staying asleep, or sleeping too much: not at all 4. Feeling tired or having little energy: several days 5. Poor appetite or overeating: not at all 6. Feeling bad about yourself - or that you are a failure or have let yourself or your family down: not at all 7. Trouble concentrating on things, such as reading the newspaper or watching television: not at all 8. Moving or speaking so slowly that other people could have noticed. Or the opposite - being so fidgety or restless that you have been moving around a lot more than usual: not at all 9. Thoughts that you would be better off or of hurting yourself in some way: not at all Total score: 1 Depression Screening Interpretation: Negative Depression Screening Done: Yes 70087 - PHQ-9 Billing: Yes Source: Developed by Drs. Mehrdad Coon, Katerina Jansen, Karlos Bolden and colleagues, with an educational luiza from [employer]. Thrive Questionnaire Date Thrive assessed: 04/19/24 I am a: Patient What is your living situation today?: I have a steady place to live Within the past 12 months, did the food you bought not last and you didn't have the money to get more?: Never true Within the past 12 months, did you worry whether your food would run out before you got money to buy more?: Never true Do you have trouble paying for medicines?: No Do you have trouble getting transportation to medical appointments?: No Do you have trouble paying your heating and electricity bill?: No Do you have trouble taking care of your child, family member or friend?: No Do you have trouble with day-to-day activities such as bathing, preparing meals, shopping, managing finances, etc.?: No Are you currently unemployed and looking for a job?: No Are you interested in more education?: No Please select the resources that you would like help with: None Currently or been in a relationship where the following occur: No concerns reported THRIVE Score: 0 AUDIT C Alcohol Use Questionnaire (AUDIT-C) 1. How often do you have a drink containing alcohol?: Monthly or less 2. How many drinks containing alcohol do you have on a typical day when you are drinking?: 1 or 2 3. How often do you have six or more drinks on one occasion?: Never Total Score: 1 CARLEEN-7 AMB Questionnaire CARLEEN-7 Date CARLEEN - 7 assessed: 04/19/24 Feeling nervous, anxious, or on edge: 1 = Several days Not being able to stop or control worryin = Not at all Worrying too much about different things: 1 = Several days Trouble relaxin = Not at all Being so restless that it is hard to sit still: 0 = Not at all Becoming easily annoyed or irritable: 1 = Several days Feeling afraid as if something awful might happen: 0 = Not at all Total CARLEEN-7 score (0-4 normal; 5-9 mild; 10-14 moderate; 15-21 severe): 3 Source: Developed by Drs. Mehrdad Coon, Katerina Jansen, Karlos Bolden and colleagues, with an educational luiza from [employer]. Review of Systems Const All systems reviewed & are unremarkable except as noted in HPI and below Physical exam (Primary Care) Vital Signs: Last Vital Signs Temp 98.2 F 01/30/25 10:42 Pulse 69 01/30/25 10:42 Resp 16 01/30/25 10:42 BP 100/72 01/30/25 10:42 Pulse Ox 100 01/30/25 10:42 Oxygen Delivery Method Room Air 01/30/25 10:42 BMI result Body Mass Index 26.8 Tobacco/Smoking Status: Tobacco use Status Tobacco use date assessed 01/30/25 01/30/25 10:46 Patient Tobacco Use Status Never used Tobacco 01/30/25 10:46 e-Cigarette/Vaping Use Never Used 01/30/25 10:46 PHQ-9: PHQ-9 Score PHQ-9: Total score 1 01/30/25 11:18 Depression Screening Interpretation: Negative Thrive Assessment: Date of Thrive Assessment Date Thrive assessed 04/19/24 01/30/25 10:46 Currently or been in a relationship where the following occur: No concerns reported Chest Other: - Breast- Tenderness noted in the right breast, especially under the nipple, upon palpation. No definite lumps felt. Chest palpation & inspection: normal inspection of the chest Breast/axilla inspection: normal inspection of the breasts Skin General skin exam: no rashes or lesions noted Coding Level of Care Code Est Pt Level 4 (80716) Diagnoses Pain of right breast N64.4 Additional Codes PHQ-9 - 33896 - PHQ-9 Billing: Yes ([id number]) Assessment & Plan Assessment & Plan (1) Pain of right breast: Code(s): N64.4 - Mastodynia Plan: The plan includes ordering an ultrasound to assess the right breast for underlying issues together with diagnostic bilateral mammogram. The patient is advised to avoid caffeine and high salt intake to minimize symptom exacerbation. Ibuprofen is recommended for pain management. Follow-up evaluation will be based on the ultrasound results. Patient was informed and verbally consented to the use of an ambient scribe for clinic note documentation during this visit.
--- OUTSIDE RECORDS SUMMARY | 2025-01-30 11:11 | XMS_ITS | Data Portability ---
Author Organization [facility], , [facility] Address [address] [place] [address] Assessment Encounter Date Assessment Date Assessment LastModified by Organization Details LastModified Time 10/16/2020 10/16/2020 RTC 3 yr CEE with CL eval or prn [email or web address] Not available 10/16/2020 09:23:11 04/01/2023 04/01/2023 RTC as scheduled for CEE [email or web address] Not available 04/02/2023 08:57:23 08/26/2023 08/26/2023 RTC 1 yr CEE/CL eval or prn [email or web address] Not available 08/27/2023 11:12:21 Plan of Treatment Reminders Order Date Submit Date Provider Last Modified By Organization Details Last Modified Time Details Appointments None record ed. Lab None record ed. Referral None record ed. Procedures None record ed. Surgeries None record ed. Imaging None record ed. Medication Orders None record ed. Patient TargetsNo targets recorded. Patient Instructions Encounter Date Encounter Id Patient Instructions Last Modified By Organization Details Last Modified Time 10/16/2020 [id number] Patient agreed t o this visit via phone or secure telehealth platform due to the COVID -19 pandemic. Patient understands this is a scheduled visit and the usual procedures with regard to billing and confidentiality apply. Patient was notified that [place] [facility] [place] During the visit the patient? s medical history and medical record were reviewed. The patient was notified to call our office for worsening or urgent symptoms. [email or web address] Not available 10/16/2020 09:23:21 Reason for Referral None Reported. Problems Name Problem SNOMED Code Status Onset Date Resolution Date Notes Provider Name and Address Organization Details Recorded Time Headache 70718826 Active Not Available [facility] 3 03:12:10 Psychogen ic headache 63230710 Active Not Available [facility] 3 03:12:10 Nausea and vomiting 47754699 Completed 200708/30/2013 Not Available [facility] 3 02:03:06 Urinary tract infectiou s disease 20592076 Completed 200708/30/2013 Not Available [facility] 3 02:01:58 Astigmati sm 47433946 Active 2005 Enid Warner, OD [address] [place], [address], [facility] 5 13:36:45 Myopia 53556361 Active 2005 Enid Warner, OD [address] [place], [address], [facility] 5 13:36:45 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 Not Available [facility] 3 03:12:10 Allergic rhinitis 96203345 Active Not Available [facility] 3 03:12:10 Acute pharyngit is 235681839 Completed 08/30/2013 Not Available [facility] 3 02:01:17 Complicat ion of medical care 54341380 Completed 200808/30/2013 Not Available [facility] 3 02:03:24 Acute suppurati ve otitis media without spontaneo us rupture of ear drum 58527464 Completed 200308/30/2013 Not Available [facility] 3 02:02:40 Syncope and collapse 757040707 Active 2003 Not Available [facility] 3 03:12:10 Joint pain in ankle and foot Completed 200808/30/2013 Not Available [facility] 3 02:01:25 Amblyopia 907506585 Active 2007 Not Available [facility] 3 03:12:10 Congenita l valgus deformity of foot 47730252 Active 2008 Not Available [facility] 3 03:12:10 Pain in throat 974938652 Completed 08/30/2013 Not Available [facility] 3 02:03:09 On examinati on - a rash Completed 200608/30/2013 Not Available [facility] 3 02:00:48 Nystagmus 655886 Active 2007 Not Available [facility] 3 03:12:10 Hearing loss 67195161 Active 2003 Not Available [facility] 3 03:12:10 Hair and hair follicle diseases Active Not Available [facility] 3 03:12:10 Dysuria 44894812 Completed 200708/30/2013 Not Available [facility] 3 02:02:00 Amenorrhe a 15465327 Active 2007 Not Available [facility] 3 03:12:10 Acquired hallux valgus 40775020 Active 2008 Not Available [facility] 3 03:12:10 Vaginitis and vulvovagi nitis Completed 200608/30/2013 Not Available [facility] 3 02:01:48 Problem Notes None recorded. Procedures Surgical History Date Name Laterality Status Provider Name and Address Organization Details Recorded Time 08/26/20 Refraction completed Enid Warner, OD [address] [place], [address], [facility] 08/27/2023 11:11:34 04/01/20 23 Contact Lens Re-eval completed Enid Holderile, OD [address] [place], [address], [facility] 04/02/2023 08:56:22 08/25/20 22 Refraction completed Enid Holderile, OD [address] [place], [address], [facility] 08/25/2022 09:26:32 10/16/19 21 Contact Lens Re-eval completed Enid Holderile, OD [address] [place], [address], [facility] 10/16/2020 09:13:16 07/18/20 19 Refraction completed Sarahi Jansen [facility] 07/18/2019 10:17:54 07/18/20 19 Contact Lens Re-eval completed Enidjoe Holderile, OD [address] [place], [address], [facility] 07/18/2019 14:15:10 08/01/20 18 Contact Lens Fitting completed Enidjoe Warner, OD [address] [place], [address], [facility] 08/01/2018 08:40:01 07/11/20 18 [facility]11[facility]2018 09:58:55 07/08/20 17 [facility] 07/08/2017 08:47:49 07/08/20 17 Contact Lens Re-eval completed [facility] 07/08/2017 08:47:50 07/07/20 16 Contact Lens Re-eval completed Enid Holderile, OD [address] [place], [address], [facility] 07/07/2016 09:42:09 04/05/20 15 Refraction completed Enid Holderile, OD [address] [place], [address], [facility] 04/05/2015 13:30:55 04/05/20 15 Contact Lens Re-eval completed Enid Warner, OD [address] [place], [address], [facility] 04/05/2015 13:30:55 05/27/20 10 IUD Removal completed Holly Aden MD [address] [place] [address], [phone], [facility] 05/27/2010 12:24:26 04/18/20 10 IUD Insertion completed Andrez Olea MD [address] [place] [address], [phone], [facility] 04/18/2010 09:51:36 Imaging Results None recorded. Procedure Notes None recorded. Medical Equipment None Reported. Allergies Allergen ID Allergen Name Allergen Category Reaction Reaction Severity Criticality Documentation Date Start Date Code Code System Note Provider Name and Address Organization Details Recorded Time 3968 amoxicill in medicatio n Not available Not available Not available 12/06/2008 723 RxNorm pt's marcial camacho told her, doesn 't know rxn Alyssaromeo Lee [facility] 5 11:22:26 Medications Name Sig Start Date Stop Date Status Note LastModified by Organization Details LastModified Time neomycin-po lymyxin-hyd rocort 3.5 mg/mL-10,00 0 unit/mL-1 % ear solution INSTILL 4 DROPS INTO AFFECTED EAR 3 TIMES A DAY FOR 7 DAYS 09/27 completed Not Available Not Available Not Available Aviane 0.1 mg-20 mcg tablet Take 1 tablet every day by oral route for 28 days. 2009 active Not Available Not Available Not Avai lable erythromyci n 500 mg tablet Take 1 tablet every 6 hours by oral route. 2008 active Not Available Not Available Not Avai lable cetirizine 10 mg tablet TAKE 1 TABLET BY MOUTH EVERY DAY active Not Available Not Available No t Available azithromyci n 250 mg tablet TAKE 2 TABLETS BY MOUTH TODAY, THEN TAKE 1 TABLET DAILY FOR 4 DAYS active Not Available Not Available No t Available sumatriptan 25 mg tablet active Not Available Not Available Not Available metronidazo le 0.75 % (37.5 mg/5 gram) vaginal gel 07/08 completed Not Available Not Available Not Available prednisone 20 mg tablet active Not Available Not Available Not Available fluorouraci l 5 % topical cream PLEASE SEE ATTACHED FOR DETAILED DIRECTION S active Not Available Not Available No t Available metronidazo le 500 mg tablet TAKE 1 TABLET BY MOUTH TWICE A DAY active Not Available Not Available No t Available hydroxyzine HCl 50 mg tablet TK 1 T PO Q 6 H PRN active Not Available Not Available No t Available ketorolac 10 mg tablet active Not Available Not Available Not Available oxycodone-a cetaminophe n 5 mg-325 mg tablet Take 1 tablet by oral route every 6 hours as needed. [facility] active Not Available Not Available No t Available cephalexin 500 mg capsule TAKE 1 CAPSULE BY MOUTH TWICE A DAY FOR 10 DAYS active Not Available Not Available No t Available olopatadine 0.1 % eye drops INSTILL 1 DROP IN AFFECTED EYE(S) TWICE A DAY AT 6 TO 8 HOUR INTERVALS active Not Available Not Available No t Available misoprostol [address] 2 tablets (200 mcg) between cheek and gum, 1 on each side, 3 hours prior to appt on 04/18. 2009 active Not Available Not Available Not Avai lable docusate sodium 100 mg capsule 1 CAPSULE BY MOUTH 2 TIMES A DAY NEEDED FOR CONSTIPAT ION active Not Available Not Available No t Available ibuprofen 600 mg tablet TAKE 1 TABLET BY MOUTH EVERY 6 HOURS NEEDED FOR PAIN active Not Available Not Available No t Available norethindro ne (contracept demetria) 0.35 mg tablet PLEASE SEE ATTACHED FOR DETAILED DIRECTION S active Not Available Not Available No t Available doxycycline hyclate 100 mg tablet TAKE 1 TABLET BY MOUTH EVERY 12 HOURS FOR 5 DAYS 09/27 completed Not Available Not Available Not Available loratadine 10 mg tablet Take 1 tablet every day by oral route at bedtime for 30 days. 08/29 completed Not Available Not Available Not Available naproxen 500 mg tablet Take 1 tablet twice a day by oral route as needed. 2009 active Not Available Not Available Not Avai lable tobramycin 0.3 %-dexametha sone 0.1 % eye drops,suspe nsion instill 1 drop into right eye four times a day 07/11 completed Not Available Not Available Not Available Bactrim DS 800 mg-160 mg tablet Take 1 tablet every 12 hours by oral route for 5 days. 03/31 completed Not Available Not Available Not Available DentaGel 1.1 % USE DIRECTED BEFORE BED 07/08 completed Not Available Not Available Not Available azithromyci n 500 mg tablet TAKE 1 TABLET BY MOUTH EVERY DAY 07/11 completed Not Available Not Available Not Available June10/30 (21) 1 mg-20 mcg tablet TAKE 1 TABLET BY MOUTH EVERY DAY active Not Available Not Available No t Available nitrofurant oin monohydrate /macrocryst als 100 mg capsule TAKE 1 CAPSULE BY MOUTH TWICE A DAY FOR 7 DAYS active Not Available Not Available No t Available ferrous gluconate 324 mg (38 mg iron) tablet TAKE 1 TABLET BY MOUTH TWICE A DAY active Not Available Not Available No t Available omeprazole 20 mg tablet,alana yed release TAKE 1 TABLET BY MOUTH 30 MIN PRIOR TO MORNING MEAL active Not Available Not Available No t Available butalbital- acetaminoph en-caffeine 50 mg-300 mg-40 mg capsule active Not Available Not Available Not Available Classic 28 mg iron-800 mcg tablet active Not Available Not Available N ot Available Vitals None Recorded Social History Question Answer Notes LastModified by Organizat ion Details LastModified Time Tobacco Smoking Status Never Smoker Not Available [facility] 08/27/2011 04:52:19 Do You Have An Advance Directive? No 17 Information not available 08/27/2011 What Is Your Level Of Alcohol Consumption? Occasional [email or web address] Information not available 03/06/2014 Education 4 Year [employer] 2013 Communicat ions. [email or web address] Information not available 12/12/2009 Live Alone Or With Others? With Others Older Sister Information not available 10/23/2013 Sibling Name Sb [email or web address] Information not available 08/27/2011 Marital Status Single Information not available 10/23/2013 What Was The Date Of Your Most Recent Tobacco Screening? 07/08/2017 Information not available 05/03/2019 How Many Children Do You Have? 0 Information not available 10/23/2013 Seat Belts Used Routinely Yes 17 Information not available 08/27/2011 Are You Sexually Active? Yes 17 Information not available 08/27/2011 How Much Tobacco Do You Smoke? No 17 Information not available 08/27/2011 Sex: Unknown Functional Status None recorded. Mental Status None recorded. Family History Relationship Description Onset Age of this Age Resolved Age Notes LastModified by Organization Details LastModified Time Father Substance abuse [email or web address] [id number] Not available 05/22/2013 03:00:41 Father Alcoholism [email or web address] [id number] Not available 05/22/2013 03:00:41 Mother Problem chroni c back pain with severa l surger ies [email or web address] [id number] Not available 05/22/2013 03:00:41 Medical History No medical history recorded. Gynecological HistoryNo gynecological history recorded. Obstetrics History GPAL:G 0 P 0 0 0 0 Immunizations Vaccine Type Date Status Note Provider Nam e and Address Organization Details Recorded Time Tdap 1 completed Not Available formerly [facility] 10/28/2019 02:39:39 influenza, unspecified formulation 3 completed Not Available formerly [facility] 08/26/2011 05:23:04 Td(adult) unspecified formulation 4 completed Not Available formerly [facility] 08/26/2011 05:21:07 HPV, unspecified formulation 7 completed Not Available formerly [facility] 08/26/2011 05:21:29 HPV, unspecified formulation 7 completed Not Available formerly [facility] 08/26/2011 05:21:55 HPV, unspecified formulation 7 completed Not Available formerly [facility] 08/26/2011 05:21:55 DTP 6 completed Not Available formerly [facility] 08/26/2011 05:22:26 influenza, unspecified formulation 1 completed Not Available formerly [facility] 08/26/2011 05:22:26 OPV 3 completed Not Available formerly [facility] 08/26/2011 05:22:26 influenza, unspecified formulation 0 completed Not Available formerly [facility] 08/26/2011 05:22:26 Hep B, unspecified formulation 6 completed Not Available formerly [facility] 08/26/2011 05:22:26 OPV 4 completed Not Available formerly [facility] 08/26/2011 05:22:26 MMR 3 completed Not Available formerly [facility] 08/26/2011 05:22:26 Hep B, unspecified formulation 7 completed Not Available formerly [facility] 08/26/2011 05:22:26 Hib, unspecified formulation 3 completed Not Available formerly [facility] 08/26/2011 05:22:26 DTP 2 completed Not Available formerly [facility] 08/26/2011 05:22:26 influenza, unspecified formulation 0 completed Not Available formerly [facility] 08/26/2011 05:22:26 Hib, unspecified formulation 3 completed Not Available formerly [facility] 08/26/2011 05:22:26 DTP 3 completed Not Available formerly [facility] 08/26/2011 05:22:26 OPV 2 completed Not Available formerly [facility] 08/26/2011 05:23:04 OPV 6 completed Not Available formerly [facility] 08/26/2011 05:22:26 Hib, unspecified formulation 3 completed Not Available formerly [facility] 08/26/2011 05:22:26 Hep B, unspecified formulation 6 completed Not Available formerly [facility] 08/26/2011 05:22:26 DTaP, unspecified formulation 6 completed Not Available formerly [facility] 08/26/2011 05:22:26 Hib, unspecified formulation 3 completed Not Available formerly [facility] 08/26/2011 05:22:26 MMR 7 completed Not Available formerly [facility] 08/26/2011 05:22:26 DTP 3 completed Not Available formerly [facility] 08/26/2011 05:23:04 Influenza, split virus, quadrivalent, PF 4 completed Not Available formerly [facility] 10/28/2019 02:34:58 Influenza, split virus, trivalent, preservative 0 completed Not Available formerly [facility] 10/28/2019 02:28:46 meningococcal MCV4P 1 completed Not Available formerly [facility] 10/28/2019 02:31:05 Past Encounters Encounter ID Performer Location Encounter Start Date Encounter Closed Date Diagnosis/Indication Diagnosis SNOMED-CT Code Diagnosis ICD10 Code Diagnosis Note [id number] [facility], OFFICE [address] [place] [address] 09/24/2003 16:00:35 09/25/2003 09:48:23 [id number] [facility], [address] [place] [address] 10/30/2003 08:29:34 10/30/2003 13:05:02 [id number] [facility], [address]ICE [address] [place] [address] 01/11/2004 17:07:36 01/14/2004 09:13:46 [id number] [facility], [address]ICE [address] [place] [address] 03/31/2004 14:38:39 03/31/2004 17:22:22 [id number] [facility], [address]ICE [address] [place] [address] 05/23/2004 12:59:35 05/24/2004 11:21:45 [id number] [facility], OFFICE [address] [place] [id number] 04/19/2006 13:40:55 10/31/2008 02:02:29 [id number] Eye [facility] [place], [facility] [address] [place] [address] 05/18/2006 13:02:31 10/31/2008 02:02:29 [id number] Optical, [facility] [address] [place] 05/18/2006 16:36:29 05/18/2006 16:55:22 [id number] [facility], OFFICE [address] [facility] [place] [id number] 12/22/2006 13:09:26 12/23/2006 09:44:48 [id number] [facility], OFFICE [address] [facility] [place] [address] 02/03/2007 07:52:51 02/03/2007 12:15:38 [id number] LAB - [facility] [address] [facility] [place] [address] 04/04/2007 12:26:12 04/04/2007 12:26:26 [id number] [facility], OFFICE [address] [facility] [place] [address] 04/04/2007 11:30:40 04/04/2007 14:36:04 [id number] Eye [facility] [place] [address] [facility] [place] [address] 05/26/2007 10:49:27 05/26/2007 14:35:39 [id number] [facility], OFFICE [address] [facility] [place] [address] 08/15/2007 16:25:16 10/31/2008 02:02:29 [id number] [facility], OFFICE [address] [facility] [place] [address] 09/28/2007 15:24:20 11/09/2007 14:09:48 [id number] [facility], OFFICE [address] [facility] [place] [address] 03/15/2008 15:27:53 10/31/2008 02:02:29 [id number] Eye Care, [facility] 70 [facility] [place] [place] 04/26/2008 10:42:33 10/31/2008 02:02:29 [id number] [facility] [address] [place] [address] 04/26/2008 12:33:48 04/26/2008 17:53:05 [id number] [facility] - [facility] [address] [place] [address] 06/27/2008 15:24:17 06/27/2008 15:24:24 [id number] [facility], OFFICE [address] [facility] [place] [address] 06/27/2008 14:45:54 10/31/2008 02:02:29 [id number] [facility], OFFICE [address] [facility] [place] [address] 10/08/2008 11:18:07 10/31/2008 02:02:29 [id number] [facility] - [facility] [address] [place] [address] 10/08/2008 16:47:25 10/08/2008 16:47:38 [id number] [facility], [address]ICE [address] [place] [address] 12/06/2008 15:37:48 12/10/2008 15:03:39 [id number] [facility], OFFICE [address] [place] [address] 12/10/2008 11:42:34 12/13/2008 09:29:49 [id number] [facility], OFFICE [address] [place] [address] 12/17/2008 11:26:10 12/19/2008 12:40:38 [id number] [facility], OFFICE [address] [place] [address] 01/17/2009 15:25:43 01/22/2009 08:53:05 [id number] [facility] [address] [place] [address] 01/17/2009 15:50:24 01/21/2009 14:46:45 [id number] [facility], OFFICE [address] [place] [address] 02/22/2009 14:15:55 02/27/2009 14:19:49 [id number] [facility], [address]ICE [address] [place] [address] 07/30/2009 16:08:16 07/31/2009 12:23:25 [id number] LAB - [address] [place] [address] 10/08/2008 00:00:00 08/08/2009 02:00:52 [id number] Radiology , [address] [place] [address] 01/17/2009 00:00:00 08/08/2009 02:00:52 [id number] Podiatry, [address] [address] 01/31/2009 14:56:49 02/01/2009 15:25:04 [id number] LAB - [address] [address] 02/23/2009 09:07:05 02/23/2009 09:07:15 [id number] Optical, [address] [address] 04/24/2009 16:06:12 04/24/2009 16:42:54 [id number] Eye Care, [address] [address] 05/30/2009 14:15:06 05/30/2009 14:53:37 [id number] [facility], OFFICE [address] [place] [facility] [place] [address] 12/12/2009 15:52:53 12/18/2009 10:07:00 [id number] [facility], OFFICE [address] [place] [facility] [place] [address] 12/27/2009 15:04:06 12/31/2009 09:44:23 [id number] [facility], OFFICE [address] [place] [facility] [place] [address] 02/20/2010 14:25:30 02/21/2010 15:53:48 [id number] [facility], OFFICE [address] [place] [facility] [place] [address] 04/10/2010 08:45:50 04/17/2010 15:33:05 [id number] [facility], OFFICE [address] [place] [facility] [place] [address] 04/17/2010 11:07:47 04/23/2010 10:40:05 [id number] [facility], OFFICE [address] [place] [facility] [place] [address] 04/18/2010 09:00:56 04/23/2010 15:24:06 [id number] Radiology , [facility] [address] [facility] [place] [address] 04/21/2010 11:03:13 04/22/2010 10:59:26 [id number] FP, C, OFFICE [address] [facility] [place] [address] 04/29/2010 09:50:57 05/01/2010 15:43:33 [id number] FP, C, OFFICE [address] [facility] [place] [address] 05/08/2010 14:17:32 05/13/2010 12:55:34 [id number] FP, C, [address] [facility] [place] [address] 05/22/2010 08:56:40 05/27/2010 08:10:03 [id number] FP, C, [address] [facility] [place] [address] 05/27/2010 10:37:43 06/03/2010 08:58:43 [id number] Debi Oneillrobert i FP, C, OFF[address] [facility] [place] [address] 09/11/2010 14:26:28 09/16/2010 08:56:39 [id number] , C, OFFICE [address] [place] [facility] [place] [address] 09/17/2010 12:02:42 09/19/2010 14:42:00 [id number] FP, C, OFFICE [address] [place] [facility] [place] [address] 09/30/2010 14:20:39 10/02/2010 15:16:36 [id number] FP, C, OFF[address] [facility] [place] [address] 01/23/2011 08:14:18 01/27/2011 10:57:45 [id number] FP, C, OFF[address] [facility] [place] [address] 03/26/2011 11:57:56 03/27/2011 13:38:35 [id number] FP, C, [address] Counts [address] [facility] [place] [address] 05/18/2011 13:50:21 05/20/2011 14:05:26 [id number] [facility], OFFICE [address] [place] [address] 05/20/2011 10:05:40 05/20/2011 10:20:56 [id number] Ceci UriarteJESUS ShresthaP-REGINO [facility], [address]ICE [address] [place] [address] 06/20/2013 08:23:35 06/20/2013 09:38:56 Adult health examination [id number] see Risk Assessment and Lifestyle Change Counseling section above. healthy 23 year old. Counseling [id number] Examinatio n for population survey [id number] Merline Lee LPN [facility], [address] [place] [address] 10/23/2013 13:39:13 10/24/2013 09:00:37 Contraception care [id number] historical ly pt did not like mirena (felt as if she was always aware of it). and felt nauseous from low dose ocps though she reports she would often have to double up on taking them. will retry. Examinatio n for population survey [id number] Influenza vaccine needed [id number] [facility], OFFICE [address] [place] [address] 03/06/2014 11:21:57 03/06/2014 13:55:53 Common cold [id number] Push fluids, rest, tylenol, chicken soup, steam, NS rinse. Follow-up if not improving in 1-2 weeks or sooner if increasing fever, purulent sputum develop,co ugh worsening. Mucinex to help thin secretions if desired. generalize d cold symptoms with pharyngiti s as worst symptom. will check cbc for mono if no improvemen t within the week. 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 stable, monitor 1-2 yrs Myopia [id number] Astigmatism [id number] Enid Warner, OD Eye Care, [facility] [address] [place] [address] 07/07/2016 08:52:06 07/07/2016 09:53:37 Myopia 53171378 H52.13 Latent nystagmus 7481022 1 H55.02 stable, monitor 1-2 yrs [id number] Enid Warner, OD Eye Care, [facility] [address] [place] [address] 07/08/2017 08:29:22 07/08/2017 09:27:38 Myopia 62975296 H52.13 Latent nystagmus 6698429 1 H55.02 stable, monitor 1 yr or prn Ophthalmic examination and evaluation 42361678 Z01.01 [id number] Enid Warner, OD Eye Care, [address] [address] 07/11/2018 09:37:48 07/11/2018 11:06:22 Myopia 60531972 H52.13 Latent nystagmus 5905204 1 H55.02 stable, monitor 1 yr or prn 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 recommend D/C CL until resolved. Start Patanol BID OU. RTC for refit into daily disposable CL. [id number] Enid Warner, OD Eye Care, [address] [address] 08/01/2018 07:50:59 08/01/2018 08:29:46 Myopia 50583901 H52.13 good initial vision, fit, comfort with CL. pt ed on CL use and annual eye exams. no sleeping in CL. If pain, redness, ERIC occur, take CL out and rtc. CL rx given. 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 has worn old lenses intermitte ntly since last visit and has only used olopatidin e 1-2x per day. pt. ed on findings. Encouraged pt. to use olopatidin e BID everyday. pt. was fit with daily disp. CL. Recommende d limiting CL use until resolved. Offered short course of steroid eye drops, pt. declines for now. f/u 4-6 weeks. 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 I encouraged pt. to use olopatidin e BID OU. may resume Daily disp. CL. RTC if redness, pain, or loss of vision occur. [id number] Enid Warner, OD Eye Care, [address] [address] 07/18/2019 09:58:20 07/18/2019 10:48:26 Myopia 88965224 H52.13 good vision, fit, comfort with CL. pt ed on CL use and annual eye exams. no sleeping in CL. If pain, redness, ERIC occur, take CL out and rtc. CL rx given. Latent nystagmus 7270136 1 H55.02 gonzález walters, no treatment indicated, observe Dry eyes 783898513 H04.1 29 Use Systane for contacts 2-4 x day. [id number] Enid Warner, OD Eye Care, [address] [address] 10/16/2020 09:12:10 10/16/2020 09:44:21 Myopia 94704907 H52.13 Rx has been stable for several years, no changes made to rx. good vision, fit, comfort with CL. pt ed on CL use and annual eye exams. no sleeping in CL. If pain, redness, ERIC occur, take CL out and rtc. CL rx will be mailed to patient. 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 She may use Systane for contacts 2-4 x day prn. [id number] Enid Warner, OD Eye Care, [address] [address] 08/25/2022 08:36:49 08/27/2022 16:44:02 Myopia 22726170 H52.13 did not do CL eval today; will return for that Latent nystagmus 3548182 1 H55.02 stablegonzález, no treatment indicated, observe Dry eyes 646713841 H04.1 29 Use Systane for contacts 2-4 x day. remove eye make up nightly. Ophthalmic examination and evaluation 87373768 Z01.01 [id number] Enid Warner, OD Eye Care, [address] [address] 04/01/2023 14:57:06 04/08/2023 13:54:35 Myopia 88144724 H52.13 Rx has been stable for several years, no changes made to rx. good vision, fit, comfort with CL. pt ed on CL use and annual eye exams. no sleeping in CL. If pain, redness, ERIC occur, take CL out and rtc. Latent nystagmus 7519715 1 H55.02 stablegonzález, no treatment indicated, observe Dry eyes 306429830 H04.1 29 pt reports some dry eyes with CL, She may use Refresh for contacts 2-4 x day prn. [id number] Enid Warner, OD Eye Care, [address] [address] 08/26/2023 09:18:25 08/26/2023 10:12:47 Myopia 18463776 H52.13 did not do CL eval today. done recently. Latent nystagmus 6477177 1 H55.02 stablegonzález, no treatment indicated, observe Dry eyes 439465497 H04.1 29 Use Systane for contacts 2-4 x day. remove eye make up nightly. Ophthalmic examination and evaluation 76242961 Z01.01 Health Concerns Section Related Observation LastModified by Organization Detai ls LastModified Time None Recorded Concern Status LastModified by Organization Details LastModified Time None Recorded Advance Directives Directive N: Payers Encounter Date Sequence Insurance Name Policy Number Policy Saucedo Covered Member ID Saucedo Member ID Guarantor Name 07/18/2019 1 [facility] Lo Palma [id number] Lo Aguilar 10/16/2020 1 [facility] [place] [id number] Lo Palma [id number] Lo Snow Donealicia 08/26/2023 [facility] oL Aguilar [id number] Lo Aguilar Notes Date Note Type Note Provider Name and Address Organization Details Recorded Time 07/18/2019 text/html Contact Lens ExamReported bypatient.Quality:n o blurred vision with current contact lenses; comfortable Frequency:rarely (3x a week) Replacement Schedule:daily Modifying Facotrs:does not sleep in CL Average Wearing Time (hrs):10 hours Enid Warner, OD [address] [place], [address], [facility] 07/18/2019 14:16:33 10/16/2020 text/html Contact Lens ExamReported bypatient.Current Contact Lens:1-Day acuvue moist Quality:no blurred vision with current contact lenses; comfortable Frequency:daily Replacement Schedule:daily Modifying Facotrs:does not sleep in CL Average Wearing Time (hrs):8-10 hours Enid Warner, OD [address] [place] [address], [address], [facility] 10/16/2020 09:24:39 08/25/2022 text/html Comprehensive Ey e ExamReported bypatient.Quality:b lurred vision near and distance without glasses Location:bilateral Context:currently wears glasses Modifying factors:wears glasses for distance only Associated Symptoms:no redness; no itching; no floaters; no drynessNotes:Did not wear contacts today Enid Holderile, OD [address] [place], [address], [facility] 09/01/2022 17:17:42 04/01/2023 text/html Contact Lens ExamReported bypatient.Quality:n o blurred vision with current contact lenses; comfortable Frequency:daily Replacement Schedule:daily Modifying Facotrs:does not sleep in CL Average Wearing Time (hrs):10 to 12 hours Enid Holderile, OD [address] [place], [address], [facility] 04/02/2023 08:57:55 08/26/2023 text/html Dry EyeReported bypatient.Location: bilateral Severity:mild Duration:intermitte nt Onset/Timing:recurr ent episode Enid Warner, OD [address] [place], [address], [facility] 08/27/2023 11:12:35 OBGyn Episode No OBEpisode recorded.
== END 2025-01-30 11:16 | disposition home or self-care (01) ==
LOC: HO.HMCC 09:56
PROVIDERS: PCP Internal Medicine; Visit Provider Internal Medicine
DX: N64.4 Mastodynia (principal)

== ENCOUNTER → 2025-01-30 09:55 | Outpatient (BNVA) | payer OTHER, SELFPAY | PROVIDERS: PCP Internal Medicine; Visit Provider Internal Medicine | DX: N64.4 Mastodynia (principal) | CPT/HCPCS: 96127 ==

== ENCOUNTER 2025-03-06 11:40 | Outpatient (REF) | payer OTHER, SELFPAY ==
--- NOTE | ~2025-03-06 | US_ITS ---
EXAMINATION: US DIAGNOSTIC ULTRASOUND BREAST, RIGHT CLINICAL INFORMATION: Right breast pain for one week in January with it was palpated. No injury no medication changes. The patient is unsure if she is and although mammography is still recommended as per ACR recommendations the patient declined mammography today.. COMPARISON: Comparison is made with relevant prior imaging. TECHNIQUE: Ultrasound of the breast is performed with real-time redmond scale imaging and color Doppler. FINDINGS: Targeted color Doppler ultrasound scanning in the area the patient's pain in the right breast from 40 8:00 demonstrates normal fibronodular breast tissue. There is no sonographic abnormal findings. Results are discussed with the patient at time of visit. US/US breast RT limited mamm only IMPRESSION: No sonographic abnormality to account for the patient's right breast pain. Recommend clinical evaluation follow-up. Recommend mammographic diagnostic evaluation at this time. The patient declined mammography at this time as she was unsure if she was . ASSESSMENT: BI-RADS 1: Negative RECOMMENDATION: Recommend diagnostic mammographic imaging for further evaluation. Recommend clinical evaluation follow-up. Electronically signed by: Lyubov Schultz DO 03/06/2025 01:12 PM EDT
--- OUTSIDE RECORDS SUMMARY | 2025-03-06 12:18 | XMS_ITS | Data Portability ---
Author Organization [facility], , [facility] Address [address] [place] [address] Assessment Encounter Date Assessment Date Assessment LastModified [...] By Organization Details Last Modified Time 10/16/2020 [id number] Patient agreed t o this visit via phone or secure telehealth platform due to the COVID -19 pandemic. Patient understands this is a scheduled visit and the usual procedures with regard to billing and confidentiality apply. Patient was notified that the provider location is [facility] [place]: [place] During the visit the patient? s medical history and medical record were reviewed. The patient was notified to call our office for worsening or urgent symptoms. [email or web address] Not available 10/16/2020 09:23:21 Reason for Referral None Reported. Problems Name Problem SNOMED Code Status Onset Date Resolution Date Notes Provider Name and Address Organization Details Recorded Time Headache 28052441 Active Not Available [facility] 3 03:12:10 Psychogen ic headache 65671102 Active Not Available [facility] 3 03:12:10 Nausea and vomiting 67296205 Completed 200708/30/2013 Not Available [facility] 3 02:03:06 Urinary tract infectiou s disease 64532894 Completed 200708/30/2013 Not Available [facility] 3 02:01:58 Astigmati sm 83166600 Active 2005 Enid Warner, OD [address] [place], [address], [facility] 5 13:36:45 Myopia 54711097 Active 2005 Enid Warner, OD [address] [place], [address], [facility] 5 13:36:45 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 Not Available [facility] 3 03:12:10 Allergic rhinitis 84811432 Active Not Available [facility] 3 03:12:10 Acute pharyngit is 460181543 Completed 08/30/2013 Not Available [facility] 3 02:01:17 Complicat ion of medical care 19875096 Completed 200808/30/2013 Not Available [facility] 3 02:03:24 Acute suppurati ve otitis media without spontaneo us rupture of ear drum 28470761 Completed 200308/30/2013 Not Available [facility] 3 02:02:40 Syncope and collapse 054617136 Active 2003 Not Available [facility] 3 03:12:10 Joint pain in ankle and foot Completed 200808/30/2013 Not Available [facility] 3 02:01:25 Amblyopia 231364993 Active 2007 Not Available [facility] 3 03:12:10 Congenita l valgus deformity of foot 17247104 Active 2008 Not Available [facility] 3 03:12:10 Pain in throat 421090783 Completed 08/30/2013 Not Available [facility] 3 02:03:09 On examinati on - a rash Completed 200608/30/2013 Not Available [facility] 3 02:00:48 Nystagmus 373796 Active 2007 Not Available [facility] 3 03:12:10 Hearing loss 10343237 Active 2003 Not Available [facility] 3 03:12:10 Hair and hair follicle diseases Active Not Available [facility] 3 03:12:10 Dysuria 09549460 Completed 200708/30/2013 Not Available [facility] 3 02:02:00 Amenorrhe a 09440674 Active 2007 Not Available [facility] 3 03:12:10 Acquired hallux valgus 04267602 Active 2008 Not Available [facility] 3 03:12:10 Vaginitis and vulvovagi nitis Completed 200608/30/2013 Not Available [facility] 3 02:01:48 Problem Notes None recorded. Procedures Surgical History Date Name Laterality Status Provider Name and Address Organization Details Recorded Time 08/26/20 Refraction completed Enid Warner, OD [address] [place], [address], [facility] 08/27/2023 11:11:34 04/01/20 23 Contact Lens Re-eval completed Enid Holderile, OD [address] [place], [address], [facility] 04/02/2023 08:56:22 08/25/20 22 Refraction completed Enid Holderile, OD [address] [place], [address], [facility] 08/25/2022 09:26:32 10/16/19 21 Contact Lens Re-eval completed Enid Holderile, OD [address] [place], [address], [facility] 10/16/2020 09:13:16 07/18/20 19 Refraction completed Sarahi Jansen [facility] 07/18/2019 10:17:54 07/18/20 19 Contact Lens Re-eval completed Enidjoe Holderile, OD [address] [place], [address], [facility] 07/18/2019 14:15:10 08/01/20 18 Contact Lens Fitting completed Enidjoe Warner, OD [address] [place], [address], [facility] 08/01/2018 08:40:01 07/11/20 18 [facility] 09:58:55 07/08/20 17 [facility] 07/08[facility]2017 08:47:49 07/08/20 17 Contact Lens Re-eval completed [facility] 07/08/2017 08:47:50 07/07/20 16 Contact Lens Re-eval completed Enid Holderile, OD [address] [place], [address], [facility] 07/07/2016 09:42:09 04/05/20 15 Refraction completed Enid Holderile, OD [address] [place], [address], [facility] 04/05/2015 13:30:55 04/05/20 15 Contact Lens Re-eval completed Enid Warner, OD [address] [place], [address], [facility] 04/05/2015 13:30:55 05/27/20 10 IUD Removal completed Holly Aden MD [address] [place] [address], [address], [facility] 05/27/2010 12:24:26 04/18/20 10 IUD Insertion completed Andrez Olea MD [address] [place] [address], [address], [facility] 04/18/2010 09:51:36 Imaging Results None recorded. Procedure [...] her, doesn 't know rxn Alyssaromeo Lee [facility] 5 11:22:26 Medications Name Sig Start Date [...] 6 hours as needed. [facility] active Not Available Not Available [...] Tobacco Smoking Status Never Smoker Not Available [facility] 08/27/2011 04:52:19 Do You Have An Advance Directive? No 17 Information not available 08/27/2011 Education 4 Year College [employer] Jr 2013 Communicati ons. [email or web address] Information not available 12/12/2009 Live Alone Or With Others? With Others Older Sister Information not available 10/23/2013 Sibling Name Sb DBA_PATCH_ 1 17 Information not available 08/27/2011 Marital Status Single Informatio n not available 10/23/2013 What Was The Date [...] not available 08/27/2011 Sex: Unknown Functional Status Question Answer Note LastModified by Organizat ion Details LastModified Time What is your level of alcohol consumption? Occasional [email or web address] Information not available 03/06/2014 Mental Status None recorded. Family History Relationship Description Onset Age of this Age Resolved Age Notes LastModified by Organization Details LastModified Time Father Substance abuse [id number] [id number] Not available 05/22/2013 03:00:41 Father Alcoholism DBA_[email or web address]_ Not available 05/22/2013 03:00:41 Mother Problem chroni c back pain with severa l surger ies [email or web address] [id number] Not available 05/22/2013 03:00:41 Medical History No medical history recorded. Gynecological HistoryNo gynecological history recorded. Obstetrics History GPAL:G 0 P 0 0 0 0 Immunizations Vaccine Type Date Status Note Provider Nam e and Address Organization Details Recorded Time Tdap 1 completed Not Available [facility] 10/28/2019 02:39:39 influenza, unspecified formulation 3 completed Not Available [facility] 08/26/2011 05:23:04 Td(adult) unspecified formulation 4 completed Not Available [facility] 08/26/2011 05:21:07 HPV, unspecified formulation 7 completed Not Available [facility] 08/26/2011 05:21:29 HPV, unspecified formulation 7 completed Not Available [facility] 08/26/2011 05:21:55 HPV, unspecified formulation 7 completed Not Available [facility] 08/26/2011 05:21:55 DTP 6 completed Not Available [facility] 08/26/2011 05:22:26 influenza, unspecified formulation 1 completed Not Available [facility] 08/26/2011 05:22:26 OPV 3 completed Not Available [facility] 08/26/2011 05:22:26 influenza, unspecified formulation 0 completed Not Available [facility] 08/26/2011 05:22:26 Hep B, unspecified formulation 6 completed Not Available [facility] 08/26/2011 05:22:26 OPV 4 completed Not Available [facility] 08/26/2011 05:22:26 MMR 3 completed Not Available [facility] 08/26/2011 05:22:26 Hep B, unspecified formulation 7 completed Not Available [facility] 08/26/2011 05:22:26 Hib, unspecified formulation 3 completed Not Available [facility] 08/26/2011 05:22:26 DTP 2 completed Not Available [facility] 08/26/2011 05:22:26 influenza, unspecified formulation 0 completed Not Available [facility] 08/26/2011 05:22:26 Hib, unspecified formulation 3 completed Not Available [facility] 08/26/2011 05:22:26 DTP 3 completed Not Available [facility] 08/26/2011 05:22:26 OPV 2 completed Not Available [facility] 08/26/2011 05:23:04 OPV 6 completed Not Available [facility] 08/26/2011 05:22:26 Hib, unspecified formulation 3 completed Not Available [facility] 08/26/2011 05:22:26 Hep B, unspecified formulation 6 completed Not Available [facility] 08/26/2011 05:22:26 DTaP, unspecified formulation 6 completed Not Available [facility] 08/26/2011 05:22:26 Hib, unspecified formulation 3 completed Not Available [facility] 08/26/2011 05:22:26 MMR 7 completed Not Available [facility] 08/26/2011 05:22:26 DTP 3 completed Not Available [facility] 08/26/2011 05:23:04 Influenza, split virus, quadrivalent, PF 4 completed Not Available [facility] 10/28/2019 02:34:58 Influenza, split virus, trivalent, preservative 0 completed Not Available [facility] 10/28/2019 02:28:46 meningococcal MCV4P 1 completed Not Available [facility] 10/28/2019 02:31:05 Past Encounters Encounter ID Performer Location Encounter Start Date Encounter Closed Date Diagnosis/Indication Diagnosis SNOMED-CT Code Diagnosis ICD10 Code Diagnosis Note [id number] Jagdish Li MD , [facility], [address] [place] [address] 09/24/2003 16:00:35 09/25/2003 09:48:23 [id number] JONE Richards , [facility], [address] [place] [address] 10/30/2003 08:29:34 10/30/2003 13:05:02 [id number] Jagdish Li MD , [facility], [address] [place] [address] 01/11/2004 17:07:36 01/14/2004 09:13:46 [id number] Jagdish Li MD , [facility], [address] [place] [address] 03/31/2004 14:38:39 03/31/2004 17:22:22 [id number] JUAN Steele, [facility], [address] [place] [address] 05/23/2004 12:59:35 05/24/2004 11:21:45 [id number] JUAN Chakraborty, [facility], [address] [place] [address] 04/19/2006 13:40:55 10/31/2008 02:02:29 [id number] Daysi Baeza, OD [facility], [address] [address] 05/18/2006 13:02:31 10/31/2008 02:02:29 [id number] [facility], [facility] [address] [place] [address] 05/18/2006 16:36:29 05/18/2006 16:55:22 [id number] Nitish Doll [facility], [address] [place] [address] 12/22/2006 13:09:26 12/23/2006 09:44:48 [id number] JUAN Chakraborty, [facility], [address] [place] [address] 02/03/2007 07:52:51 02/03/2007 12:15:38 [id number] [facility] - [address] [address] 04/04/2007 12:26:12 04/04/2007 12:26:26 [id number] JUAN Chakraborty, [facility], [address] [place] [address] 04/04/2007 11:30:40 04/04/2007 14:36:04 [id number] Daysi Baeza, OD [facility], [address] [address] 05/26/2007 10:49:27 05/26/2007 14:35:39 [id number] JUAN Chakraborty, [facility], [address] [place] [address] 08/15/2007 16:25:16 10/31/2008 02:02:29 [id number] JUAN Villasenor, [facility], [address] [place] [address] 09/28/2007 15:24:20 11/09/2007 14:09:48 [id number] MD FELIPE Childers, [facility], [address] [place] [address] 03/15/2008 15:27:53 10/31/2008 02:02:29 [id number] [facility], [facility] [address] [place] [address] 04/26/2008 10:42:33 10/31/2008 02:02:29 [id number] [facility], [facility] [address] [place] [address] 04/26/2008 12:33:48 04/26/2008 17:53:05 [id number] [facility] - [address] [address] 06/27/2008 15:24:17 06/27/2008 15:24:24 [id number] JUAN Gomez, [facility], [address] [place] [address] 06/27/2008 14:45:54 10/31/2008 02:02:29 [id number] JUAN Steele, [facility], [address] [place] [address] 10/08/2008 11:18:07 10/31/2008 02:02:29 [id number] [facility] - [address] [address] 10/08/2008 16:47:25 10/08/2008 16:47:38 [id number] JUAN Chakraborty, [facility], [address] [place] [address] 12/06/2008 15:37:48 12/10/2008 15:03:39 [id number] JUAN Chakraborty, [facility], [address] [place] [address] 12/10/2008 11:42:34 12/13/2008 09:29:49 [id number] UJAN tSeele, [facility], [address] [place] [address] 12/17/2008 11:26:10 12/19/2008 12:40:38 [id number] JUAN Chakrabotry, [facility], [address] [place] [address] 01/17/2009 15:25:43 01/22/2009 08:53:05 [id number] [facility] , [address] [address] 01/17/2009 15:50:24 01/21/2009 14:46:45 [id number] JUAN Chakraborty, [facility], [address] [place] [address] 02/22/2009 14:15:55 02/27/2009 14:19:49 [id number] JUAN Gomez, [facility], [address] [place] [address] 07/30/2009 16:08:16 07/31/2009 12:23:25 [id number] [facility] - [address] [address] 10/08/2008 00:00:00 08/08/2009 02:00:52 [id number] [facility] RADIOLOGY [address] [address] 01/17/2009 00:00:00 08/08/2009 02:00:52 [id number] Jalen Peacock DPM Podiatry, [address] [address] 01/31/2009 14:56:49 02/01/2009 15:25:04 [id number] [facility] - [address] [address] 02/23/2009 09:07:05 02/23/2009 09:07:15 [id number] [facility], [address] [address] 04/24/2009 16:06:12 04/24/2009 16:42:54 [id number] [facility], [address] [address] 05/30/2009 14:15:06 05/30/2009 14:53:37 [id number] Pamela Gamez NP FP, [facility], [address] [place] [address] 12/12/2009 15:52:53 12/18/2009 10:07:00 [id number] Pamela Gamez NP FP, [facility], [address] [place] [facility] [place] [address] 12/27/2009 15:04:06 12/31/2009 09:44:23 [id number] Pamela Gamez NP FP, [facility], [address] [place] [place] [facility] [place] [address] 02/20/2010 14:25:30 02/21/2010 15:53:48 [id number] Pamela Gamez NP FP, [facility], [address] [place] [place] [facility] [place] [address] 04/10/2010 08:45:50 04/17/2010 15:33:05 [id number] Pamela Gamez NP FP, [facility], [address] [place] [place] [facility] [place] [address] 04/17/2010 11:07:47 04/23/2010 10:40:05 [id number] Andrez Olea MD , [facility], [address] [place] [place] [facility] [place] [address] 04/18/2010 09:00:56 04/23/2010 15:24:[id number] [facility] COOLER OPERATOR Radiology , [facility] [address] [facility] [place] [address] 04/21/2010 11:03:13 04/22/2010 10:59:26 [id number] Pamela Gamez NP FP, [facility], [address] [place] [place] [facility] [place] [address] 04/29/2010 09:50:57 05/01/2010 15:43:33 [id number] Holly Aden MD FP, [facility], [address] [place] [place] [facility] [place] [address] 05/08/2010 14:17:32 05/13/2010 12:55:34 [id number] Holly Aden MD FP, [facility], [address] [place] [place] [facility] [place] [address] 05/22/2010 08:56:40 05/27/2010 08:10:03 [id number] Holly Aden MD FP, [facility], [address] [place] [address] 05/27/2010 10:37:43 06/03/2010 08:58:43 [id number] Pamela Gamez NP , [facility], OFFICE [address] [place] [address] 09/11/2010 14:26:28 09/16/2010 08:56:39 [id number] Latha Martínez , [facility], [address]ICE [address] [place] [address] 09/17/2010 12:02:42 09/19/2010 14:42:00 [id number] Latha Martínez , [facility], OFFICE [address] [place] [address] 09/30/2010 14:20:39 10/02/2010 15:16:36 [id number] Pamela Gamez NP , [facility], OFFICE [address] [place] [address] 01/23/2011 08:14:18 01/27/2011 10:57:45 [id number] Pamela Gamez NP , [facility], [address]ICE [address] [place] [address] 03/26/2011 11:57:56 03/27/2011 13:38:35 [id number] [facility] TREATMENT NURSE , [facility], OFFICE [address] [place] [address] 05/18/2011 13:50:21 05/20/2011 14:05:26 [id number] Latha WANG, [facility], OFFICE [address] [place] [address] 05/20/2011 10:05:40 05/20/2011 10:20:56 [id number] JESUS FlahertyP-BC , [facility], [address] [place] [address] 06/20/2013 08:23:35 06/20/2013 09:38:56 Adult health examination [id number] see Risk Assessment and Lifestyle Change Counseling section above. healthy 23 year old. Counseling [id number] [facility] survey [id number] Zuhair Porter MD , [facility], [address] [place] [address] 10/23/2013 13:39:13 10/24/2013 09:00:37 Contraception care 810551709 historical ly pt did not like mirena (felt as if she was always aware of it). and felt nauseous from low dose ocps though she reports she would often have to double up on taking them. will retry. Examinatio n for population survey 086576183 Influenza vaccine needed [id number] Ceci [place], PI[employer]-BC , [facility], [address] [place] [address] 03/06/2014 11:21:57 03/06/2014 13:55:53 Common cold 98036702 Push fluids, rest, tylenol, chicken soup, steam, NS rinse. Follow-up if not improving in 1-2 weeks or sooner if increasing fever, purulent sputum develop,co ugh worsening. Mucinex to help thin secretions if desired. generalize d cold symptoms with pharyngiti s as worst symptom. will check cbc for mono if no improvemen t within the week. [id number] Enid Warner, OD [facility], [facility] [address] [place] [address] 04/05/2015 11:01:53 04/05/2015 14:47:07 Latent nystagmus 55766650 stable, monitor 1-2 yrs Myopia 03491022 Astigmatism 06155040 [id number] Enid Warner, OD [facility], [facility] [address] [place] [address] 07/07/2016 08:52:06 07/07/2016 09:53:37 Myopia 80324752 H52.13 Latent nystagmus 7539849 1 H55.02 stable, monitor 1-2 yrs [id number] Enid Warner, OD [facility], [facility] [address] [place] [address] 07/08/2017 08:29:22 07/08/2017 09:27:38 Myopia 15435831 H52.13 Latent nystagmus 4994500 1 H55.02 stable, monitor 1 yr or prn Ophthalmic examination and evaluation 27652041 Z01.01 [id number] Enid Warner, OD [facility], [facility] [address] [place] [address] 07/11/2018 09:37:48 07/11/2018 11:06:22 Myopia 67978006 H52.13 Latent nystagmus 7536359 1 H55.02 stable, monitor 1 yr or prn 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 recommend D/C CL until resolved. Start Patanol BID OU. RTC for refit into daily disposable CL. [id number] Enid Warner, OD [facility], [address] [address] 08/01/2018 07:50:59 08/01/2018 08:29:46 Myopia 83638188 H52.13 good initial vision, fit, comfort with CL. pt ed on CL use and annual eye exams. no sleeping in CL. If pain, redness, ERIC occur, take CL out and rtc. CL rx given. 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 declines for now. f/u 4-6 weeks. 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 I encouraged pt. to use olopatidin e BID OU. may resume Daily disp. CL. RTC if redness, pain, or loss of vision occur. [id number] Enid Warner, OD [facility], [address] [address] 07/18/2019 09:58:20 07/18/2019 10:48:26 Myopia 13782013 H52.13 good vision, fit, comfort with CL. pt ed on CL use and annual eye exams. no sleeping in CL. If pain, redness, ERIC occur, take CL out and rtc. CL rx given. Latent nystagmus 2306672 1 H55.02 stable, longstandi ng, no treatment indicated, observe Dry eyes 894859079 H04.1 29 Use Systane for contacts 2-4 x day. [id number] Enid Warner, OD [facility], [address] [address] 10/16/2020 09:12:10 10/16/2020 09:44:21 Myopia 71558976 H52.13 Rx has been stable for several years, no changes made to rx. good vision, fit, comfort with CL. pt ed on CL use and annual eye exams. no sleeping in CL. If pain, redness, ERIC occur, take CL out and rtc. CL rx will be mailed to patient. Latent nystagmus 6894224 1 H55.02 stable, longstandi ng, no treatment indicated, observe Dry eyes 959227835 H04.1 29 pt reports no dry eyes, but have been dry in the past. She may use Systane for contacts 2-4 x day prn. [id number] Enid Warner, OD [facility], [address] [address] 08/25/2022 08:36:49 08/27/2022 16:44:02 Myopia 18710829 H52.13 did not do CL eval today; will return for that Latent nystagmus 3749697 1 H55.02 stable, longstandi ng, no treatment indicated, observe Dry eyes 311476980 H04.1 29 Use Systane for contacts 2-4 x day. remove eye make up nightly. Ophthalmic examination and evaluation 67466939 Z01.01 [id number] Enid Warner, OD [facility], [address] [address] 04/01/2023 14:57:06 04/08/2023 13:54:35 Myopia 95055519 H52.13 Rx has been stable for several years, no changes made to rx. good vision, fit, comfort with CL. pt ed on CL use and annual eye exams. no sleeping in CL. If pain, redness, ERIC occur, take CL out and rtc. Latent nystagmus 9882511 1 H55.02 stable, longstandi ng, no treatment indicated, observe Dry eyes 340669661 H04.1 29 pt reports some dry eyes with CL, She may use Refresh for contacts 2-4 x day prn. [id number] Enid Warner, OD Eye Care, [facility] [address] [place] [address] 08/26/2023 09:18:25 08/26/2023 10:12:47 Myopia 77755389 H52.13 did not do CL eval today. done recently. Latent nystagmus 8135918 1 H55.02 stable, longstandi ng, no treatment indicated, observe Dry eyes 195029241 H04.1 29 Use Systane for contacts 2-4 x day. remove eye make up nightly. Ophthalmic examination and evaluation 92767110 Z01.01 Health Concerns Section Related Observation LastModified by Organization Detai ls LastModified Time None Recorded Concern Status LastModified by Organization Details LastModified Time None Recorded Advance Directives Directive N: Payers Encounter Date Sequence Insurance Name Policy Number Policy Saucedo Covered Member ID Saucedo Member ID Guarantor Name 07/18/2019 1 [facility] ([facility] Lo Palma [id number] Lo Aguilar 10/16/2020 1 [facility] ([facility]) [id number] Lo Palma [id number] Lo Aguilar 08/26/2023 [employer] Lo Aguilar [id number] Lo Aguilar Notes Date Note Type Note Provider Name and Address Organization Details Recorded Time 07/18/2019 text/html Contact Lens ExamReported bypatient.Quality:n o blurred vision with current contact lenses; comfortable Frequency:rarely (3x a week) Replacement Schedule:daily Modifying Facotrs:does not sleep in CL Average Wearing Time (hrs):10 hours Enid Warner, OD [address] [place], [address], [facility] 07/18/2019 14:16:33 10/16/2020 text/html Contact Lens ExamReported bypatient.Current Contact Lens:1-Day acuvue moist Quality:no blurred vision with current contact lenses; comfortable Frequency:daily Replacement Schedule:daily Modifying Facotrs:does not sleep in CL Average Wearing Time (hrs):8-10 hours Enid Warner, OD [address] [place], [address], [facility] 10/16/2020 09:24:39 08/25/2022 text/html Comprehensive Ey e ExamReported bypatient.Quality:b lurred vision near and distance without glasses Location:bilateral Context:currently wears glasses Modifying factors:wears glasses for distance only Associated Symptoms:no redness; no itching; no floaters; no drynessNotes:Did not wear contacts today Enid Warner, OD [address] [place], [address], [facility] 09/01/2022 17:17:42 04/01/2023 text/html Contact Lens ExamReported bypatient.Quality:n o blurred vision with current contact lenses; comfortable Frequency:daily Replacement Schedule:daily Modifying Facotrs:does not sleep in CL Average Wearing Time (hrs):10 to 12 hours Enid Warner, OD [address] [place], [address], [facility] 04/02/2023 08:57:55 08/26/2023 text/html Dry EyeReported bypatient.Location: bilateral Severity:mild Duration:intermitte nt Onset/Timing:recurr ent episode Enid Warner, OD [address] [place], [address], [facility] 08/27/2023 11:12:35 OBGyn Episode No OBEpisode recorded.
== END 2025-03-06 11:41 | disposition home or self-care (01) ==
LOC: HO.MAMMO 11:40
PROVIDERS: PCP Internal Medicine; Visit Provider Internal Medicine
DX: N64.4 Mastodynia (principal)
CPT/HCPCS: 76642

== ENCOUNTER → 2025-03-06 12:30 | Outpatient (BNV) | payer OTHER, SELFPAY | PROVIDERS: PCP Internal Medicine; Visit Provider Internal Medicine | DX: N60.21 Fibroadenosis of right breast (principal) | CPT/HCPCS: 76642 ==

== ENCOUNTER 2025-05-21 08:16 | Outpatient (REF) | payer OTHER, SELFPAY ==
--- OUTSIDE RECORDS SUMMARY | 2025-05-21 10:01 | XMS_ITS | Clinical Summary ---
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 Active acetaminophen (TYLENOL) 325 mg tablet Take 650 mg by mouth every 6 (six) hours as needed. Active fluorouraciL (EFUDEX) 5 % creamIndication s:Verruca plantaris Apply topically daily. Apply topically to the skin of the right foot. Cover with waterproof bandage. Change daily. 40 g 1 3 Active Additional Information Patient not taking.Reported on 03/20/2025 norethindrone (MICRONOR) 0.35 mg tablet Take 0.35 mg by mouth. 2 Active Active Problems Problem Noted Date Diagnosed Date Verruca plantaris 03/27/2021 Resolved Problems Problem Noted Date Diagnosed Date Resolved Date Supervision of normal 10/10/2018 10/10/2018 Overview (10/10/2018): ALLIE GARCIA - unsure, ask at FOB visit Childbirth Ed? Group PN care? * Rh * Tdap * Flu * Hgb * GTT * GBS * PPBC * NT testing Flu Encounters Date Type Department Care Team Description 03/20/2025 5:30 PM EDT Office Visit [facility] at [address] [address] Dionne Gonzales PA-C Constipation, unspecified constipation type (Primary Dx) from Last 3 Months Immunizations Immunization Administration Dates Next Due COVID-19 (Pre-08/02) Moderna Vaccine, mRNA, PF 12/06/2020,11/07/2020 INFLUENZA, SPLIT VIRUS, TRIV ALENT W/ PRESERVATIVE IM 08/05/2021 Influenza Quadrivalent Preservative Free IM 09/10 Influenza Quadrivalent w/ Preservative IM 2019 Tdap 09/30/2021,11/16/2017,05/18/2011 Family History Medical History Relation Comments Alcohol abuse Father Drug abuse Father Relation Status Comments Father Mother Alive Sister Alive Social History Tobacco Use Types Packs/Day Years Used Date Smoking Tobacco: Never Smokeless Tobacco: Never Tobacco Cessation:Counseling Given: Not Answered Alcohol Use Standard Drinks/Week Comments Yes 0 (1 standard drink = 0.6 oz pur e alcohol) 3 drinks a month at most Education Answer Date Recorded Are you interested in more education? Not on lety e 02/05/2023 Are you concerned about learning? Not on file 02/05/2023 No 02/05/2023 No 02/05/2023 Digital Access Answer Date Recorded No 03/05/2023 No 03/05/2023 Reliable internet access at home? Not on file 03/05/2023 Device with a working camera? 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 Not on file Not on file Not on file Last Filed Vital Signs Vital Sign Reading Time Taken Comments Blood Pressure 125/90 03/20/2025 6:39 PM EDT Pulse 87 03/20/2025 6:39 PM EDT Temperature 36.8 C (98.2 F) 03/20/2025 6:39 PM EDT Respiratory Rate 12 03/20/2025 6:39 PM EDT Oxygen Saturation 99% 03/20/2025 6:39 PM EDT Inhaled Oxygen Concentration - - Weight 60.8 kg (134 lb) 03/20/2025 6:39 PM EDT Height 152.4 cm (5') 03/20/2025 6:39 PM EDT Body Mass Index 26.17 03/20/2025 6:39 PM EDT Plan of Treatment Health Maintenance Due Date Last Done Comments DEPRESSION SCREENING 2004 HEPATITIS C SCREENING 2010 HIV ONE-TIME SCREENING (18-6 5 YEARS) 2010 PAP SMEAR 2013 COVID-19 VACCINE (2023-2 5 season) 2024 12/06/2020, 11/07/2020 Adult Td,Tdap Booster 09/30/2031 09/30/2021 , 11/16/2017, 05/18/2011 SMOKING STATUS SCREENING (On ce After 26 Yrs) Completed 03/20/2025 HEPATITIS A VACCINES Aged Out No long er eligible based on patient's age to complete this topic HIB VACCINES Aged Out No longer eligi ble based on patient's age to complete this topic MENINGOCOCCAL VACCINES (ACWY) Aged Out No longer eligible based on patient's age to complete this topic MENINGOCOCCAL VACCINES (B) Aged Out N o longer eligible based on patient's age to complete this topic PNEUMOCOCCAL VACCINES (0-49 years) Aged Out No longer eligible b ased on patient's age to complete this topic Medical Devices Not on file Insurance [employer] 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 It is not the complete legal health record.[facility]
[2025-05-21 13:46] LABS: Hematocrit 42.5 % (37.0-47.0); Hemoglobin 14.7 g/dl (12.0-16.0)
[2025-05-21 14:08] LABS: Alanine Aminotransferase 20 U/L (0-31); Anion Gap 11 (12-20); Aspartate Amino Transferase 29 U/L (5-31); Blood Urea Nitrogen 10 mg/dL (9-16); Calcium 9.1 mg/dL (8.4-10.2); Carbon Dioxide 26 mmol/L (22-29); Chloride 108 mmol/L (96-108); Cholesterol 169 mg/dL (<200); Estimated Glomerular Filt Rate > 60; HDL Cholesterol 49 mg/dL (>40); Potassium 4.4 mmol/L (3.3-5.1); Sodium 141 mmol/L (135-145); Triglycerides 95 mg/dL (<150)
[2025-05-21 14:09] LABS: Hemoglobin A1C 119.5413 umol/L; Total Hemoglobin (HGBA1C) 3888.8970 umol/L
== END 2025-05-21 08:17 | disposition home or self-care (01) ==
LOC: HO.HMGCLDS 08:16
PROVIDERS: PCP Internal Medicine; Visit Provider Internal Medicine
DX: Z00.01 Encounter for general adult medical examination with abnormal findings (principal); E78.1 Pure hyperglyceridemia; R51.9 Headache, unspecified; M26.629 Arthralgia of temporomandibular joint, unspecified side; Z71.89 Other specified counseling; Z13.1 Encounter for screening for diabetes mellitus
CPT/HCPCS: 36415; 80048; 80061; 82306; 83036; 84450; 84460; 85014; 85018

== ENCOUNTER 2025-05-21 08:16 | Outpatient (AMB) | payer OTHER, SELFPAY ==
[2025-05-21 08:54] VITALS: BP 108/80; PULSE 78; RESP 14; TEMP 36.7; O2SAT 99; BMI 26.2
--- NOTE | 2025-05-21 08:54 | A.OFFPC_ITS ---
Vital Signs 05/21/25 08:54 Height 5 ft Weight 134 lb BMI 26.2 BP 108/80 Blood Pressure Location Rt brachial Position Sitting Respiration 14 Pulse 78 Pulse Source Pulse Oximeter Temp 98.0 F Pulse Oximetry (%) 99 Oxygen Delivery Method Room Air Intake Visit Reasons: PE Intake Note: Pt is here today for her PE:Last papsmear 12/09/20/ Is last menstrual period known: Yes Last menstrual period: 05/18/25 Allergies amoxicillin (AMOXICILLIN) Allergy (Unknown, Verified 05/21/25 09:06) UNKNOWN, unsure vancomycin Allergy (Mild, Uncoded 05/21/25 09:06) rash itchiness Medication List - Last Reconciled 05/21/25 by Lenore Francis MD No Known Home Meds Tobacco use date assessed: 05/21/25 Dental Screening Dental Screen Date: 05/21/25 Did you have a dental visit in the last 12 months?: Yes Did you have a dental problem in the last 6 months where you did not have access to dental care?: No Was dental information given to patient?: Patient has dentist HPI PE HPI Details - The patient is a 34-year-old female pr esenting with today for physical exam. - complaining of Headaches have been occ urring almost daily for the past month, often starting upon waking. Diagnosed to have bruxism in the past, and has tried several mouth guards all of which has not helped. Most likely headaches are from temporomandibular joint dysfunction. She states that her headaches are relieved temporarily by analgesics like Tylenol or ibuprofen.. - history of Ectopic occurred at age 31, resulting in the removal of one fallopian tube. - The patient has a history of care at [facility] in [place] and plans to continue care there for future pregnancies. - Preventative care includes a Pap smear , which has not been performed since the last in 2020, patient states will schedule appointment for her cervical cancer screening and pelvic exam. [facility] Medical History TMJ pain dysfunction syndrome Hypertriglyceridemia Plantar wart of right foot Generalized anxiety disorder with panic attacks Seasonal allergies Chlamydia Ectopic Bruxism Surgical History History of surgery History of surgery History of eye surgery Family History Father ETOH abuse Diabetes mellitus Mother No problems noted. Sister No problems noted. Sister No problems noted. Maternal Grandfather No problems noted. Maternal Grandmother No problems noted. Paternal Grandfather No problems noted. Paternal Grandmother No problems noted. Other Mental health disorder Substance use disorder Social History Housing: Apartment Alcohol intake: current Alcohol intake frequency: holidays/special occasions only Patient Tobacco Use Status: Never used Tobacco e-Cigarette/Vaping Use: Never Used service: No Current occupational status: employed Cognitive needs: No Hearing needs: No Vision needs: Yes Female Reproductive History Menstrual Date of last menstrual period: 05/18/25 Other: [facility] Questionnaire PHQ-9 Over the last 2 weeks, how often have you been bothered by any of the following problems? Depression Screening Interpretation: Negative Depression Screening Done: Yes Source: Developed by Drs. Mehrdad Coon, Katerina Jansen, Karlos Bolden and colleagues, with an educational luiza from [employer]. Thrive Questionnaire Date Thrive assessed: 01/30/25 I am a: Patient What is your living situation today?: I have a steady place to live Within the past 12 months, did the food you bought not last and you didn't have the money to get more?: Never true Within the past 12 months, did you worry whether your food would run out before you got money to buy more?: Never true Do you have trouble paying for medicines?: No Do you have trouble getting transportation to medical appointments?: No Do you have trouble paying your heating and electricity bill?: No Do you have trouble taking care of your child, family member or friend?: No Do you have trouble with day-to-day activities such as bathing, preparing meals, shopping, managing finances, etc.?: No Are you currently unemployed and looking for a job?: No Are you interested in more education?: No Please select the resources that you would like help with: None Currently or been in a relationship where the following occur: No concerns reported THRIVE Score: 0 CARLEEN-7 AMB Questionnaire CARLEEN-7 Date CARLEEN - 7 assessed: 04/19/24 Source: Developed by Drs. Mehrdad Coon, Katerina Jansen, Karlos Bolden and colleagues, with an educational luiza from [employer]. Review of Systems Const Denies fatigue, Denies fever(s) and Denies weakness Eyes Denies change in vision ENT Denies dizziness, Denies nasal congestion and Denies nasal discharge Card Denies lightheadedness, Denies palpitations and Denies dyspnea Resp Denies chest congestion, Denies cough, Denies dyspnea and Denies wheezing GI Denies abdominal pain, Denies change in bowel habits and Denies heartburn Denies abnormal menses, Denies urinary frequency, Denies dysuria, Denies urinary urgency and Denies vaginal discharge Musc Reports no additional complaints Skin/Breast Denies breast skin changes, Denies breast pain and Denies breast mass Neuro Denies dizziness and Denies weakness Psych Denies anxiety, Denies depression, Denies irritability and Denies mood swings Endo Denies fatigue, Denies polydipsia, Denies polyuria and Denies palpitations Bao/Lymph Reports no additional complaints Aller/Immun Denies seasonal rhinorrhea and Denies wheezing Physical exam (Primary Care) Vital Signs: Last Vital Signs Temp 98.0 F 05/21/25 08:54 Pulse 78 05/21/25 08:54 Resp 14 05/21/25 08:54 BP 108/80 05/21/25 08:54 Pulse Ox 99 05/21/25 08:54 Oxygen Delivery Method Room Air 05/21/25 08:54 BMI result Body Mass Index 26.2 Tobacco/Smoking Status: Tobacco use Status Tobacco use date assessed 05/21/25 05/21/25 08:56 Patient Tobacco Use Status Never used Tobacco 05/21/25 08:56 e-Cigarette/Vaping Use Never Used 05/21/25 08:56 Depression Screening Interpretation: Negative Thrive Assessment: Date of Thrive Assessment Date Thrive assessed 01/30/25 05/21/25 08:56 Currently or been in a relationship where the following occur: No concerns reported Advance Care Planning discussion: Completed/Scanned Date of discussion: 05/21/25 Who was present: Patient Forms completed: Health Care Proxy Time spent: 16-45 minutes Actual minutes spent: 2 Const General: no acute distress, alert and awake Orientation/consciousness: patient oriented x3 [facility] Head: Yes normocephalic Ears: external ears normal, TM's normal bilaterally and EAC's normal General nose exam: Normal external nose present Face and sinus: Yes face symmetric and Yes other (Slight tenderness on both TMJ area) Mouth: Normal oral and palatal mucosa present, tongue normal, oropharynx normal and moist mucous membranes Eyes General: appearance normal, both eyes and all related structures Neck Neck: Yes full ROM, Yes no lymphadenopathy, Yes no meningeal signs and Yes supple Chest Chest palpation & inspection: normal inspection of the chest Breast/axilla palpation: normal palpation of the breasts Resp Effort & Inspection: normal respiratory effort and able to speak in complete sentences Auscultation: clear to auscultation bilaterally Cardio Other: S1-S2 present regular rate and rhythm GI Other: + striae, Normal bowel sounds, soft, nontender, no mass palpated Other: Last Pap smear was in 2020 with normal findings Back/Spine/Pelvis Back: No back tenderness Skin General skin exam: no rashes or lesions noted Neuro General: patient oriented x3, gait normal, tone normal, moves all extremities, Normal light touch and pain sensation, no meningeal signs, no focal motor deficits and CN's II-XI intact bilaterally Extrem General: Yes normal to inspection, Yes full ROM, Yes no joint enlargement and Yes no pedal edema Psych Appearance: grossly normal and well kempt Mental Status: mental status grossly normal Speech and movement: Normal speech and movement present Affect: normal affect Attitude: cooperative Coding Level of Care Code Est Pt Prev Care 18-39y(51090) Diagnoses Annual visit for general adult medical examination with abnormal findings Z. Hypertriglyceridemia E78.1 Nonintractable episodic headache, unspecified headache type R51.9 Headache type: unspecified Headache chronicity pattern: episodic headache Intractability: not intractable Advance directive discussed with patient Z71.89 Additional Codes Vital Signs *Quality* - Advance Care Planning discussion: Completed/Scanned ([id number]) Vital Signs *Quality* - Time spent: 16-45 minutes ([id number]) Assessment & Plan Assessment & Plan (1) Annual visit for general adult medical examination with abnormal findings: Code(s): Z00.01 - Encounter for general adult medical examination with abnormal findings Plan: Will check appropriate labs. Continue regular dental visit every 6 months and regular eye exams, at least every 2 years. Take adequate calcium in diet and vitamin-D 3 at 2000 IU per cap once a day, in addition to weight-bearing exercises to help maintain good muscle tone and weight control. Instructed to do self-breast exam, and recommended to get yearly mammogram, starting at age 40. [facility] Patient states she will schedule appointment with [facility] for her repeat cervical cancer screening. (2) Hypertriglyceridemia: Code(s): E78.1 - Pure hyperglyceridemia Category: Medical Plan: Repeat fasting lipid panel ordered, reviewed adherence to healthy eating habits, cutting back on lot of junk food and fast food, importance of regular exercise discussed on this visit (3) Headache: Code(s): R51.9 - Headache, unspecified Category: Medical Qualifiers: Headache type: unspecified Headache chronicity pattern: episodic headache Intractability: not intractable Qualified Code(s): R51.9 - Headache, unspecified Plan: Nortriptyline is considered to help manage the headaches and bruxism, with a caution regarding potential sedation. 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 Advanced Directives help patients prepare for current and future decisions about their medical treatment and place of care. Discussed with patient that it is a process where a patients current condition and prognosis are reviewed, their wishes for information regarding their illness are elicited, and likely medical dilemmas are presented and options discussed. Healthcare proxy form completed today. The form can be amended as needed, reviewed yearly and make changes as needed Orders: Orders Alanine Aminotransferase 05/21/25 E78.1 - Pure hyperglyceridemia, M26.629 - Arthralgia of temporomandibular joint, unspecified side, R51.9 - Headache, unspecified, Z00.01 - Encounter for general adult medical examination with abnormal findings, Z71.89 - Other specified counseling Hemoglobin A1c 05/21/25 E78.1 - Pure hyperglyceridemia, M26.629 - Arthralgia of temporomandibular joint, unspecified side, R51.9 - Headache, unspecified, Z00.01 - Encounter for general adult medical examination with abnormal findings, Z71.89 - Other specified counseling Vitamin D 25-OH Total 05/21/25 E78.1 - Pure hyperglyceridemia, M26.629 - Arthralgia of temporomandibular joint, unspecified side, R51.9 - Headache, unspecified, Z00.01 - Encounter for general adult medical examination with abnormal findings, Z71.89 - Other specified counseling Hemoglobin and Hematocrit 05/21/25 E78.1 - Pure hyperglyceridemia, M26.629 - Arthralgia of temporomandibular joint, unspecified side, R51.9 - Headache, unspecified, Z00.01 - Encounter for general adult medical examination with abnormal findings, Z71.89 - Other specified counseling Aspartate Amino Transferase 05/21/25 E78.1 - Pure hyperglyceridemia, M26.629 - Arthralgia of temporomandibular joint, unspecified side, R51.9 - Headache, unspecified, Z00.01 - Encounter for general adult medical examination with abnormal findings, Z71.89 - Other specified counseling Lipid Panel 05/21/25 E78.1 - Pure hyperglyceridemia, M26.629 - Arthralgia of temporomandibular joint, unspecified side, R51.9 - Headache, unspecified, Z00.01 - Encounter for general adult medical examination with abnormal findings, Z71.89 - Other specified counseling Basic Metabolic Panel Fasting 05/21/25 E78.1 - Pure hyperglyceridemia, M26.629 - Arthralgia of temporomandibular joint, unspecified side, R51.9 - Headache, unspecified, Z00.01 - Encounter for general adult medical examination with abnormal findings, Z71.89 - Other specified counseling Medications: New nortriptyline 10 mg PO BEDTIME 30 caps 0RF
== END 2025-05-21 09:30 | disposition home or self-care (01) ==
LOC: HO.HMCC 08:17
PROVIDERS: PCP Internal Medicine; Visit Provider Internal Medicine
DX: Z00.01 Encounter for general adult medical examination with abnormal findings (principal); E78.1 Pure hyperglyceridemia; R51.9 Headache, unspecified; Z71.89 Other specified counseling; Z00.00 Encounter for general adult medical examination without abnormal findings

== ENCOUNTER 2025-07-24 08:03 | Outpatient (AMB) | payer OTHER, SELFPAY ==
[2025-07-24 08:09] VITALS: BP 108/80; PULSE 84; RESP 16; TEMP 36.8; O2SAT 99; BMI 26.8
--- NOTE | 2025-07-24 08:09 | MHC.PC.OV ---
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 Required: No Allergies amoxicillin (AMOXICILLIN) Allergy (Unknown, Verified 07/24/25 08:16) UNKNOWN, unsure vancomycin Allergy (Mild, Uncoded 07/24/25 08:16) rash itchiness Medication List - Last Reconciled 07/24/25 by Lenore Francis MD No Known Home Meds Tobacco use date assessed: 07/24/25 Dental Screening Dental Screen Date: 07/24/25 Did you have a dental visit in the last 12 months?: Yes Did you have a dental problem in the last 6 months where you did not have access to dental care?: No Was dental information given to patient?: Patient has dentist HPI HPI Comments History of Present Illness Details The patient is a 35-year-old female presenting with chronic constipation and migraine headaches. The patient reports experiencing migraines since childhood, though they were not persistent at that time and she did not seek medical attention for them. Currently, she experiences migraines that begin with a diffuse headache, sometimes localized to different parts of the head, and can progress to severe pain causing nausea and inability to think clearly. Dtko-fqt-ghcghnp medications such as Tylenol and ibuprofen have been ineffective in providing relief. The patient has a lifelong history of constipation, which has worsened over the past six months. She reports bowel movements occurring every five days, with 1 episode prompting her to be seen at an urgent care clinic. Previous recommendations included the use of MiraLAX and Colace, which provided limited relief. The patient has a family history of colon cancer on her paternal side, with both her grandmother and great-grandmother diagnosed with the condition. Her father, who at 41 due to pancreatitis and alcoholism, did not have a known diagnosis of colon cancer. The patient also reports temporomandibular joint disorder symptoms, including teeth grinding and occasional lockjaw, which may contribute to her headaches. She has not seen a specialist for this condition but plans to discuss it with her dentist. [facility] Medical History (Updated 07/24/25 @ 08:41 by Lenore Francis MD) Headache Chronic constipation TMJ pain dysfunction syndrome Hypertriglyceridemia Plantar wart of right foot Generalized anxiety disorder with panic attacks Seasonal allergies Chlamydia Ectopic Bruxism Surgical History History of surgery History of surgery History of eye surgery Family History (Updated 07/24/25 @ 08:23 by Lenore Francis MD) Father ETOH abuse Diabetes mellitus Pancreatitis Mother No problems noted. Sister No problems noted. Sister No problems noted. Maternal Grandfather No problems noted. Maternal Grandmother No problems noted. Paternal Grandfather Colon cancer Paternal Grandmother No problems noted. Other Mental health disorder Substance use disorder Social History Housing: Apartment Alcohol intake: current Alcohol intake frequency: holidays/special occasions only Patient Tobacco Use Status: Never used Tobacco e-Cigarette/Vaping Use: Never Used service: No Current occupational status: employed Cognitive needs: No Hearing needs: No Vision needs: Yes Questionnaire Thrive Questionnaire Date Thrive assessed: 01/30/25 I am a: Patient What is your living situation today?: I have a steady place to live Within the past 12 months, did the food you bought not last and you didn't have the money to get more?: Never true Within the past 12 months, did you worry whether your food would run out before you got money to buy more?: Never true Do you have trouble paying for medicines?: No Do you have trouble getting transportation to medical appointments?: No Do you have trouble paying your heating and electricity bill?: No Do you have trouble taking care of your child, family member or friend?: No Do you have trouble with day-to-day activities such as bathing, preparing meals, shopping, managing finances, etc.?: No Are you currently unemployed and looking for a job?: No Are you interested in more education?: No Please select the resources that you would like help with: None Currently or been in a relationship where the following occur: No concerns reported THRIVE Score: 0 CARLEEN-7 AMB Questionnaire CARLEEN-7 Date CARLEEN - 7 assessed: 04/19/24 Source: Developed by Drs. Mehrdad Coon, Katerina Jansen, Karlos Bolden and colleagues, with an educational luiza from [employer]. Review of Systems Const All systems reviewed & are unremarkable except as noted in HPI and below Physical exam (Primary Care) Vital Signs: Last Vital Signs Temp 98.3 F 07/24/25 08:09 Pulse 84 07/24/25 08:09 Resp 16 07/24/25 08:09 BP 108/80 07/24/25 08:09 Pulse Ox 99 07/24/25 08:09 Oxygen Delivery Method Room Air 07/24/25 08:09 BMI result Body Mass Index 26.8 Tobacco/Smoking Status: Tobacco use Status Tobacco use date assessed 07/24/25 07/24/25 08:14 Patient Tobacco Use Status Never used Tobacco 07/24/25 08:14 e-Cigarette/Vaping Use Never Used 07/24/25 08:14 Thrive Assessment: Date of Thrive Assessment Date Thrive assessed 01/30/25 07/24/25 08:14 Currently or been in a relationship where the following occur: No concerns reported Const General: no acute distress and alert Orientation/consciousness: patient oriented x3 HENMT Head: Yes normocephalic Ears: external ears normal, TM's normal bilaterally and EAC's normal General nose exam: Normal external nose present Face and sinus: Yes face symmetric and Yes other (Slight tenderness on both TMJ area) Mouth: Normal oral and palatal mucosa present and moist mucous membranes Eyes General: appearance normal, both eyes and all related structures Neck Neck: Yes full ROM, Yes no lymphadenopathy, Yes no meningeal signs and Yes supple Resp Effort & Inspection: normal respiratory effort and able to speak in complete sentences Auscultation: clear to auscultation bilaterally Cardio Other: S1-S2 present regular rate and rhythm GI Other: + striae, Normal bowel sounds, soft, nontender, no mass palpated Back/Spine/Pelvis Other: Normal range of motion of cervical spine nontender to palpation over paraspinal muscles in cervical area Skin General skin exam: no rashes or lesions noted Neuro General: patient oriented x3, gait normal, tone normal, moves all extremities, Normal light touch and pain sensation, no meningeal signs, no focal motor deficits and CN's II-XI intact bilaterally Extrem General: Yes normal to inspection, Yes full ROM, Yes no joint enlargement and Yes no pedal edema Psych Appearance: grossly normal and well kempt Mental Status: mental status grossly normal Speech and movement: Normal speech and movement present Affect: normal affect Coding Level of Care Code Est Pt Level 4 (13982) Diagnoses Chronic constipation K59.09 Headache R51.9 Assessment & Plan Assessment & Plan (1) Chronic constipation: Code(s): K59.09 - Other constipation Category: Medical Plan: Trial of Amitiza 8 mcg take once a day. Increase dietary fiber intake and stay well-hydrated. Call if no improvement after 1 or 2 weeks. Referred to GI Clinic at [facility] per patient preference, for further evaluation management especially in light of history of positive colon cancer in paternal grandfather and great-grandfather (2) Headache: Code(s): R51.9 - Headache, unspecified Category: Medical Plan: Prescription sent for Fioricet, to take 1 tablet every 12 hours as needed for headache. Call if no improvement of symptoms. Orders: Referrals Gastroenterology Referral K59.09 - Other constipation Medications: New xhbcdideks-qqguzgodcrzuf-esav 50-300-40 mg (Fioricet) 1 cap PO Q12H PRN 14 caps 0RF headache lubiprostone (Amitiza) 8 mcg PO DAILY 30 caps 0RF
--- OUTSIDE RECORDS SUMMARY | 2025-07-24 08:10 | XMS_ITS | Clinical Summary ---
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 Not on file Not [...] (18-6 5 YEARS) 2010 PAP SMEAR 2013 INFLUENZA VACCINE (#1) 2025 , 11/06/2019, 09/21/2017 COVID-19 VACCINE (2024-2 6 season) 2025 12/06/2020, 11/07/2020 Adult Td,Tdap Booster 09/30/2031 09/30/2021 [...] topic Medical Devices Not on file Insurance [employer] POS [employer] POS [employer] EXPL[employer] POS [employer]EL EXPL[employer]ER POS [employer]EL EXPLORER POS [employer] CHAPEL EXPLORER POS [employer] CHAPEL 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 It is not the complete legal health record.[facility]
--- OUTSIDE RECORDS SUMMARY | 2025-07-24 08:11 | XMS_ITS | Encounter Summary ---
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 It is not the complete legal health record.[facility]
--- OUTSIDE RECORDS SUMMARY | 2025-07-24 08:11 | XMS_ITS | Encounter Summary ---
Author Organization [facility] Address [address] [facility] [address] [place] [address] Phone Care Team Providers Care Gis Instructor Name Role Phone Debi Benton NP Primary Care Provider [phone] Lenore Francis MD Primary Care Provider Encounter Details Date Type Department Care Team (Late st Contact Info) Description 11/30/2022 Procedure Pass [place] Admitting Dept - Virtual Department [address] [place] [address] Social History Tobacco Use Types Packs/Day Years Used Date Smoking Tobacco: Never Smokeless Tobacco: Never Alcohol Use Standard Drinks/Week Comments Yes 0 (1 standard drink = 0.6 oz pur e alcohol) 3 drinks a month at most Comments No Sex and Gender Information Value Date Recorded Sex Assigned at Female 07/30/2019 3:16 AM EDT Legal Sex Female 8:59 PM EDT Gender Identity Female 07/30/2019 3:16 AM EDT Sexual Orientation Not on file 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 [address] [place], [place] [address] PCP - General Internal Medicine 03/18/23 documented as of this encounter Additional Source Comments The information contained in this document represents components of the legal health record. It is not the complete legal health record.[facility]
--- OUTSIDE RECORDS SUMMARY | 2025-07-24 08:11 | XMS_ITS | Encounter Summary ---
Author Organization [facility] Address [address] [facility] [address] [place] [address] Phone Care Team Providers Care Player Development Executive Name Role Phone Lenore Francis MD Primary Care Provider Encounter Details Date Type Department Care Team (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 It is not the complete legal health record.[facility]
--- OUTSIDE RECORDS SUMMARY | 2025-07-24 08:11 | XMS_ITS | Encounter Summary ---
Author Organization [facility] Address [address] [facility] [address] [place] [address] Phone Care Team Providers Care Business Services Officer Name Role Phone Debi Benton NP Primary Care Provider [phone] Lenore Francis MD Primary Care Provider Encounter Details Date Type Department Care Team ([facility] st Contact Info) Description 10/20/2022 Prep for Surgery [facility] Podiatry [address] [place] [address] Ainsley Bar DPM [address] [facility] [address] [place] [address] [email or web address] Verruca plantaris (Primary Dx) Social History Tobacco Use Types Packs/Day Years Used Date Smoking Tobacco: Never Smokeless Tobacco: Never Alcohol Use Standard Drinks/Week Comments Yes 0 (1 standard drink = 0.6 oz pur e alcohol) Comments No Sex and Gender Information Value Date Recorded Sex Assigned at Female 07/30/2019 3:16 AM EDT Legal Sex Female 8:59 PM EDT Gender Identity Female 07/30/2019 3:16 AM EDT Sexual Orientation Not on file 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 Not on file Not on file documented as of this encounter Plan of Treatment Not on file documented as of this encounter Visit Diagnoses Diagnosis Verruca plantaris- Primary Plantar wart documented in this encounter Care Teams Business Services Officer Relationship Specialty Start Date End Date Debi Benton NP [address] [place] [address] PCP - General Family Medicine 03/26/20 03/17/23 Lenore Francis MD [address] [place] [address] [place] [address] PCP - General Internal Medicine 03/18/23 documented as of this encounter Additional Source Comments The information contained in this document represents components of the legal health record. It is not the complete legal health record.[facility]
== END 2025-07-24 08:57 | disposition home or self-care (01) ==
PROVIDERS: PCP Internal Medicine; Visit Provider Internal Medicine
DX: K59.09 Other constipation (principal); R51.9 Headache, unspecified